=== PATIENT | female | born 1950 | race Caucasian/White ===

== ENCOUNTER → 2017-06-26 | Outpatient (CLI) | payer MEDICARE ==
[~2017-06-26] MED LIST: ACET325 PO; ASPI325 PO; ASPI81EC PO; Bactrim Ds Tab1 EACH PO; CITA20 PO; DIPH50 PO; DOCU100 PO; Ferrous Sulfat325 M2 PO; GABA100 PO; GABA300 PO; HYDACE10B PO; HYDR1TAB94 PO; LEVFLO500 PO; LEVSOD50 PO; LISI20 PO; LOVA40 PO; Loratadine10 MG PO; METO50ER PO; Methimazole5 MG PO; PRED10; PROBIOTIC1 EACH PO; Pantoprazole So40 MG PO; SERT25 PO; TRAZ50 PO
== END | disposition home or self-care (01) ==
LOC: LAB EV 17:08
DX: N39.0 Urinary tract infection, site not specified (principal)
CPT/HCPCS: 87077; 87086; 87147; 87186

== ENCOUNTER 2017-07-22 13:08 | Inpatient (IN) | payer MEDICARE ==
[~2017-07-22] VITALS: Ht 162.6 cm; Wt 97.5 kg
[~2017-07-22 13:08] MED LIST changes: -ACET325 PO; -ASPI325 PO; -Bactrim Ds Tab1 EACH PO; -DIPH50 PO; -DOCU100 PO; -Ferrous Sulfat325 M2 PO; -GABA300 PO; -HYDR1TAB94 PO; -LEVSOD50 PO; -PRED10; -PROBIOTIC1 EACH PO; -Pantoprazole So40 MG PO
[2017-08-27 04:26] LABS: BASOPHILS ABSOLUTE AUTO 0.01 K/mm3 (0.00-0.23); BASOPHILS PERCENT AUTO 0 % (0-2); EOSINOPHILS ABSOLUTE AUTO 0.04 K/mm3 (0.00-0.68); EOSINOPHILS PERCENT AUTO 1 % (0-6); Hematocrit 31.2 % (33.0-51.0); Hemoglobin 9.2 g/dL (11.5-16.0); IMMATURE GRAN ABSOLUTE AUTO 0.01 K/mm3 (0.00-0.10); IMMATURE GRAN PERCENT AUTO 0 % (0-1); LYMPHOCYTES ABSOLUTE AUTO 0.91 K/mm3 (0.84-5.20); LYMPHOCYTES PERCENT AUTO 16 % (21-46); MONOCYTES PERCENT AUTO 7 % (4-13); Mean Corpuscular HGB 26.1 pg (26.0-34.0); Mean Corpuscular HGB Conc 29.5 g/dL (31.5-36.5); Mean Corpuscular Volume 89 fL (80-100); NEUTROPHILS ABSOLUTE AUTO 4.19 K/mm3 (1.96-9.15); NEUTROPHILS PERCENT AUTO 75 % (41-73); RDW Coefficient Variation 20.5 % (11.7-14.2); RDW Standard Deviation 65.8 fL (35.1-46.3); Red Blood Cell Count 3.52 M/mm3 (3.80-5.20); White Blood Cell Count 5.56 K/mm3 (4.00-11.30)
[2017-08-27 04:31] LABS: Mean Platelet Volume 10.1 fL (9.1-12.4); Platelet Count 105 K/mm3 (150-400)
[2017-08-27 04:47] LABS: Anion Gap 6 mmol/L (6-16); Blood Urea Nitrogen 10 mg/dL (8-24); Bun/Creatinine Ratio 18.9 (12.0-20.0); CO2, Blood 28 mmol/L (21-32); Chloride, Blood 109 mmol/L (98-108); Creatinine, Blood 0.53 mg/dL (0.40-1.00); Glomerular Filtration Rate >60 (60-); Glucose, Blood 107 mg/dL (70-99); Potassium, Blood 3.8 mmol/L (3.5-5.5); Sodium, Blood 143 mmol/L (136-145)
[2017-08-27] MEDS ORDERED: HYDR1TAB94 PO (15:05)
[2017-08-27] MEDS ORDERED: DOCU100 PO (15:06)
[2017-08-27] MEDS ORDERED: IRON256 MG PO (15:08)
[2017-08-27] MEDS ORDERED: ASPI325 PO (15:15)
== END 2017-08-27 15:25 | disposition home or self-care (01) | DRG 483 ==
LOC: SURS 08-26 06:04 → PRE IP 08-26 07:30 → SURS 08-26 16:38
PROVIDERS: Orthopaedic Surgery
PROC: 0RRK0JZ Replacement of Left Shoulder Joint with Synthetic Substitute, Open Approach (ICD-10-PCS; principal; 2017-08-26 07:30)
DX: M19.012 Primary osteoarthritis, left shoulder (principal); M75.112 Incomplete rotator cuff tear or rupture of left shoulder, not specified as traumatic; K21.9 Gastro-esophageal reflux disease without esophagitis; F32.9 Major depressive disorder, single episode, unspecified; E78.5 Hyperlipidemia, unspecified; M06.9 Rheumatoid arthritis, unspecified; I10 Essential (primary) hypertension; E05.90 Thyrotoxicosis, unspecified without thyrotoxic crisis or storm; Z88.5 Allergy status to narcotic agent; Z79.899 Other long term (current) drug therapy; E04.9 Nontoxic goiter, unspecified
CPT/HCPCS: 36415; 73030; 80048; 85025; 86850; 86900; 86901; 88300; 97110; 97162; 97166; 97530; C1776; G8978; G8979; G8980; G8987; G8988; J0171; J0690; J0735; J1100; J1885; J2250; J2370; J2405; J2765; J2795; J3010; J7120; Q0163

== ENCOUNTER → 2018-01-09 | Outpatient (CLI) | payer MEDICARE ==
[~2018-01-09] MED LIST changes: +ASPI325 PO; +DOCU100 PO; +Ferrous Sulfat325 M2 PO; +GABA300 PO; +HYDR1TAB94 PO; +LEVSOD50 PO; +Pantoprazole So40 MG PO
[2018-01-09 09:35] LABS: BASOPHILS ABSOLUTE AUTO 0.03 K/mm3 (0.00-0.23); BASOPHILS PERCENT AUTO 0 % (0-2); EOSINOPHILS ABSOLUTE AUTO 0.02 K/mm3 (0.00-0.68); EOSINOPHILS PERCENT AUTO 0 % (0-6); Hematocrit 37.1 % (33.0-51.0); IMMATURE GRAN ABSOLUTE AUTO 0.07 K/mm3 (0.00-0.10); IMMATURE GRAN PERCENT AUTO 1 % (0-1); LYMPHOCYTES ABSOLUTE AUTO 1.21 K/mm3 (0.84-5.20); LYMPHOCYTES PERCENT AUTO 10 % (21-46); MONOCYTES ABSOLUTE AUTO 1.11 K/mm3 (0.16-1.47); MONOCYTES PERCENT AUTO 9 % (4-13); Mean Corpuscular HGB 32.8 pg (26.0-34.0); Mean Corpuscular Volume 94 fL (80-100); Mean Platelet Volume 9.6 fL (9.1-12.4); NEUTROPHILS ABSOLUTE AUTO 9.41 K/mm3 (1.96-9.15); NEUTROPHILS PERCENT AUTO 79 % (41-73); Platelet Count 208 K/mm3 (150-400); RDW Coefficient Variation 12.7 % (11.7-14.2); RDW Standard Deviation 43.5 fL (35.1-46.3); Red Blood Cell Count 3.96 M/mm3 (3.80-5.20); White Blood Cell Count 11.85 K/mm3 (4.00-11.30)
[2018-01-09 09:52] LABS: Alanine Aminotransfer (ALT/SGP 32 U/L (12-78); Albumin, Blood 3.7 g/dL (3.4-5.0); Albumin/Globulin Ratio 0.9 (0.8-1.8); Alk Phos 108 U/L (40-126); Anion Gap 13 mmol/L (6-16); Aspartate Aminotrans (AST/SGOT 22 U/L (12-37); Blood Urea Nitrogen 14 mg/dL (8-24); CO2, Blood 24 mmol/L (21-32); Chloride, Blood 103 mmol/L (98-108); Globulin, Blood 4.1 g/dL (2.2-4.0); Glomerular Filtration Rate >60 (60-); Glucose, Blood 118 mg/dL (70-99); Potassium, Blood 3.8 mmol/L (3.5-5.5); Sodium, Blood 140 mmol/L (136-145); Total Protein, Blood 7.8 g/dL (6.4-8.2)
== END | disposition home or self-care (01) ==
LOC: LAB EV 09:08 → LAB SHORT 09:08
PROVIDERS: General Practice
DX: N12 Tubulo-interstitial nephritis, not specified as acute or chronic (principal)
CPT/HCPCS: 80053; 85025; 87077; 87086; 87186

== ENCOUNTER 2018-01-11 10:15 | Inpatient (IN) | payer MEDICARE ==
[~2018-01-11] VITALS: Ht 165.1 cm; Wt 106.5 kg
[~2018-01-11 10:15] MED LIST changes: -GABA300 PO; -Pantoprazole So40 MG PO
[2018-01-11 11:03] LABS: BASOPHILS ABSOLUTE AUTO 0.02 K/mm3 (0.00-0.23); BASOPHILS PERCENT AUTO 0 % (0-2); EOSINOPHILS ABSOLUTE AUTO 0.08 K/mm3 (0.00-0.68); EOSINOPHILS PERCENT AUTO 1 % (0-6); Hematocrit 32.7 % (33.0-51.0); Hemoglobin 10.9 g/dL (11.5-16.0); IMMATURE GRAN ABSOLUTE AUTO 0.02 K/mm3 (0.00-0.10); IMMATURE GRAN PERCENT AUTO 0 % (0-1); LYMPHOCYTES ABSOLUTE AUTO 0.85 K/mm3 (0.84-5.20); LYMPHOCYTES PERCENT AUTO 13 % (21-46); MONOCYTES ABSOLUTE AUTO 0.58 K/mm3 (0.16-1.47); MONOCYTES PERCENT AUTO 9 % (4-13); Mean Corpuscular HGB 31.3 pg (26.0-34.0); Mean Corpuscular HGB Conc 33.3 g/dL (31.5-36.5); Mean Corpuscular Volume 94 fL (80-100); Mean Platelet Volume 9.4 fL (9.1-12.4); NEUTROPHILS ABSOLUTE AUTO 4.96 K/mm3 (1.96-9.15); NEUTROPHILS PERCENT AUTO 76 % (41-73); Platelet Count 178 K/mm3 (150-400); RDW Coefficient Variation 12.3 % (11.7-14.2); RDW Standard Deviation 42.2 fL (35.1-46.3); Red Blood Cell Count 3.48 M/mm3 (3.80-5.20); White Blood Cell Count 6.51 K/mm3 (4.00-11.30)
[2018-01-11] MEDS ORDERED: GABA300 PO (11:04)
[2018-01-11] MEDS ORDERED: Methimazole5 MG PO (11:07)
[2018-01-11] MEDS ORDERED: Pantoprazole So40 MG PO (11:07)
[2018-01-11 11:17] LABS: Alanine Aminotransfer (ALT/SGP 61 U/L (12-78); Albumin/Globulin Ratio 0.8 (0.8-1.8); Alk Phos 104 U/L (50-136); Anion Gap 7 mmol/L (6-16); Aspartate Aminotrans (AST/SGOT 72 U/L (12-37); Bilirubin, Total 0.7 mg/dL (0.1-1.0); Blood Urea Nitrogen 12 mg/dL (8-24); Bun/Creatinine Ratio 21.2 (12.0-20.0); CO2, Blood 27 mmol/L (21-32); Calcium, Blood 8.1 mg/dL (8.5-10.1); Chloride, Blood 106 mmol/L (98-108); Creatinine, Blood 0.57 mg/dL (0.40-1.00); Globulin, Blood 3.8 g/dL (2.2-4.0); Glomerular Filtration Rate >60 (60-); Glucose, Blood 100 mg/dL (70-99); Potassium, Blood 3.4 mmol/L (3.5-5.5); Sodium, Blood 140 mmol/L (136-145); Total Protein, Blood 6.8 g/dL (6.4-8.2)
[2018-01-11 11:36] LABS: Source, Urine Clean Catch
[2018-01-11 11:43] LABS: Bilirubin, Urine Neg (Neg); Blood, Urine 4+ (Neg); Glucose Qualitative, Urine Neg (Neg); Ketones, Urine Neg (Neg); Leukocyte Esterase, Urine 2+ (Neg); Nitrite, Urine Neg (Neg); Protein, Urine 2+ (Neg); Urobilinogen, Urine 2+ (Normal)
[2018-01-11 11:46] LABS: Appearance, Urine Hazy (Clear); Color, Urine Yellow (P-Yellow)
[2018-01-11 11:53] LABS: Bacteria Rare /hpf; Mucus Mod (0-Heavy); Squamous Epithelial Cells Few /hpf (Few)
[2018-01-12 04:45] LABS: BASOPHILS PERCENT AUTO 0 % (0-2); EOSINOPHILS PERCENT AUTO 0 % (0-6); Hematocrit 35.1 % (33.0-51.0); Hemoglobin 11.8 g/dL (11.5-16.0); IMMATURE GRAN ABSOLUTE AUTO 0.02 K/mm3 (0.00-0.10); IMMATURE GRAN PERCENT AUTO 0 % (0-1); LYMPHOCYTES ABSOLUTE AUTO 0.49 K/mm3 (0.84-5.20); LYMPHOCYTES PERCENT AUTO 10 % (21-46); MONOCYTES ABSOLUTE AUTO 0.09 K/mm3 (0.16-1.47); MONOCYTES PERCENT AUTO 2 % (4-13); Mean Corpuscular HGB Conc 33.6 g/dL (31.5-36.5); Mean Corpuscular Volume 95 fL (80-100); Mean Platelet Volume 9.5 fL (9.1-12.4); NEUTROPHILS PERCENT AUTO 88 % (41-73); Platelet Count 203 K/mm3 (150-400); RDW Coefficient Variation 12.1 % (11.7-14.2); RDW Standard Deviation 41.7 fL (35.1-46.3); Red Blood Cell Count 3.69 M/mm3 (3.80-5.20)
[2018-01-12 05:01] LABS: Anion Gap 8 mmol/L (6-16); Blood Urea Nitrogen 11 mg/dL (8-24); Bun/Creatinine Ratio 24.6 (12.0-20.0); CO2, Blood 23 mmol/L (21-32); Calcium, Blood 8.7 mg/dL (8.5-10.1); Chloride, Blood 109 mmol/L (98-108); Creatinine, Blood 0.45 mg/dL (0.40-1.00); Glomerular Filtration Rate >60 (60-); Glucose, Blood 143 mg/dL (70-99); Sodium, Blood 140 mmol/L (136-145)
[2018-01-13] MEDS ORDERED: DIPH50 PO (11:05)
[2018-01-13] MEDS ORDERED: ACET325 PO (11:05)
[2018-01-13] MEDS ORDERED: PROBIOTIC1 EACH PO (11:06)
[2018-01-13] MEDS ORDERED: PRED10 (11:07)
[2018-01-13] MEDS ORDERED: Bactrim Ds Tab1 EACH PO (11:07)
== END 2018-01-13 12:01 | disposition home or self-care (01) | DRG 690 ==
LOC: ER 10:15 → MEDS 10:16 → ENPENDDIS 01-13 09:30 → MEDS 01-13 12:01
PROVIDERS: Emergency Medicine; Internal Medicine
DX: N12 Tubulo-interstitial nephritis, not specified as acute or chronic (principal); E87.6 Hypokalemia; I10 Essential (primary) hypertension; E03.9 Hypothyroidism, unspecified; T36.8X5A Adverse effect of other systemic antibiotics, initial encounter; B96.89 Other specified bacterial agents as the cause of diseases classified elsewhere; E66.9 Obesity, unspecified; Z68.36 Body mass index [BMI] 36.0-36.9, adult; Z87.440 Personal history of urinary (tract) infections; Z87.891 Personal history of nicotine dependence; Z79.899 Other long term (current) drug therapy; Z88.5 Allergy status to narcotic agent
CPT/HCPCS: 36415; 74176; 80048; 80053; 81001; 83605; 85025; 87040; 87086; 96361; 96365; 96372; 96375; 96376; 99285-25; G0378; J0696; J1200; J1650; J1885; J1956; J2405; J2930; J7030

== ENCOUNTER → 2018-09-16 | Outpatient (CLI) | payer MEDICARE ==
[~2018-09-16] MED LIST changes: +ACET325 PO; +Bactrim Ds Tab1 EACH PO; +DIPH50 PO; +GABA300 PO; +PRED10; +PROBIOTIC1 EACH PO; +Pantoprazole So40 MG PO
[2018-09-16 17:43] LABS: BASOPHILS ABSOLUTE AUTO 0.02 K/mm3 (0.00-0.23); BASOPHILS PERCENT AUTO 0 % (0-2); EOSINOPHILS ABSOLUTE AUTO 0.03 K/mm3 (0.00-0.68); EOSINOPHILS PERCENT AUTO 1 % (0-6); Hematocrit 40.2 % (33.0-51.0); Hemoglobin 12.9 g/dL (11.5-16.0); IMMATURE GRAN ABSOLUTE AUTO 0.02 K/mm3 (0.00-0.10); IMMATURE GRAN PERCENT AUTO 0 % (0-1); LYMPHOCYTES ABSOLUTE AUTO 0.91 K/mm3 (0.84-5.20); LYMPHOCYTES PERCENT AUTO 14 % (21-46); MONOCYTES ABSOLUTE AUTO 0.67 K/mm3 (0.16-1.47); MONOCYTES PERCENT AUTO 10 % (4-13); Mean Corpuscular HGB 31.2 pg (26.0-34.0); Mean Corpuscular HGB Conc 32.1 g/dL (31.5-36.5); Mean Corpuscular Volume 97 fL (80-100); Mean Platelet Volume 9.4 fL (9.1-12.4); NEUTROPHILS ABSOLUTE AUTO 4.84 K/mm3 (1.96-9.15); NEUTROPHILS PERCENT AUTO 75 % (41-73); Platelet Count 149 K/mm3 (150-400); RDW Coefficient Variation 12.8 % (11.7-14.2); RDW Standard Deviation 45.2 fL (35.1-46.3); Red Blood Cell Count 4.13 M/mm3 (3.80-5.20); White Blood Cell Count 6.49 K/mm3 (4.00-11.30)
[2018-09-16 18:32] LABS: Alanine Aminotransfer (ALT/SGP 18 U/L (12-78); Albumin, Blood 3.9 g/dL (3.4-5.0); Albumin/Globulin Ratio 1.1 (0.8-1.8); Alk Phos 152 U/L (40-126); Anion Gap 8 mmol/L (6-16); Aspartate Aminotrans (AST/SGOT 16 U/L (12-37); Bilirubin, Total 0.4 mg/dL (0.1-1.0); Blood Urea Nitrogen 12 mg/dL (8-24); Bun/Creatinine Ratio 17.9 (12.0-20.0); CO2, Blood 28 mmol/L (21-32); Calcium, Blood 7.9 mg/dL (8.5-10.1); Chloride, Blood 103 mmol/L (98-108); Creatinine, Blood 0.67 mg/dL (0.40-1.00); Globulin, Blood 3.5 g/dL (2.2-4.0); Glomerular Filtration Rate >60 (60-); Glucose, Blood 94 mg/dL (70-99); Potassium, Blood 3.8 mmol/L (3.5-5.5); Sodium, Blood 139 mmol/L (136-145); Total Protein, Blood 7.4 g/dL (6.4-8.2)
== END | disposition home or self-care (01) ==
LOC: LAB EV 17:11 → LAB SHORT 17:11
PROVIDERS: Physician Assistant
DX: N10 Acute pyelonephritis (principal)
CPT/HCPCS: 80053; 85025; 87077; 87086; 87186

== ENCOUNTER → 2018-12-14 | Outpatient (CLI) | payer MEDICARE ==
[2018-12-14 13:40] LABS: Source, Urine Clean Catch
[2018-12-14 15:32] LABS: Bilirubin, Urine Neg (Neg); Blood, Urine 4+ (Neg); Glucose Qualitative, Urine Neg (Neg); Ketones, Urine Neg (Neg); Leukocyte Esterase, Urine 3+ (Neg); Nitrite, Urine Neg (Neg); Protein, Urine 1+ (Neg); Urobilinogen, Urine NORM (Normal)
[2018-12-14 15:52] LABS: Appearance, Urine Clear (Clear); Calcium Oxalate Crystals Many /hpf; Color, Urine Yellow (P-Yellow)
[2018-12-14 15:53] LABS: Bacteria Few /hpf; Red Blood Cells, Urine 0-2 /hpf (0-2); Squamous Epithelial Cells Few /hpf (Few)
== END | disposition home or self-care (01) ==
LOC: LAB 13:39 → LAB SHORT 13:39
PROVIDERS: Family Medicine
DX: N15.9 Renal tubulo-interstitial disease, unspecified (principal)
CPT/HCPCS: 81001; 87086

== ENCOUNTER → 2019-03-08 | Outpatient (CLI) | payer MEDICARE | END | disposition home or self-care (01) | LOC: LAB EV 09:58 → LAB SHORT 09:58 | DX: N12 Tubulo-interstitial nephritis, not specified as acute or chronic (principal) | CPT/HCPCS: 87086 ==

== ENCOUNTER → 2019-06-12 | Outpatient (CLI) | payer MEDICARE | LOC: LAB SHORT 10:04 → LAB EV 10:04 | DX: N39.0 Urinary tract infection, site not specified (principal) | CPT/HCPCS: 87077; 87086; 87186 ==

== ENCOUNTER → 2020-01-28 | Outpatient (CLI) | payer MEDICARE ==
[~2020-01-28] MED LIST changes: +ACET500 PO; +ASPI81CH PO; +Norco 5-325 Ta1 EACH PO; +OXYC5 PO
== END | disposition home or self-care (01) ==
LOC: LAB EV 11:39 → LAB SHORT 11:39
DX: N39.0 Urinary tract infection, site not specified (principal)
CPT/HCPCS: 87086

== ENCOUNTER 2020-06-19 06:06 | Day surgery (SDC) | payer MEDICARE ==
[~2020-06-19] VITALS: Ht 165.1 cm; Wt 99.4 kg
[~2020-06-19 06:06] MED LIST changes: +METHACARBAMOL PO; +MULVITA PO; +VITAMIN D310 MC4 PO
--- NOTE | 2020-06-19 07:27 | NUR ---
Ambulatory in Day Surgery. Surgical site prepped with 2% Chlorhexidine cloth wipe. Brenda Paws warming gown applied. History, Chart, Medications and Allergies reviewed before start of procedure.Lungs clear T/O to Auscultation. Patient confirms NPO status and agrees with scheduled surgery. Pre-Op teaching done. Pt verbalizes understanding. Patient States Post-Procedure ride home has been arranged. Patient reports completing Chlorhexadine shower X2 prior to admission to hospital. PATIENT HAS AGREED TO ALLOW A STUDENT TO FOLLOW HER PROCEDURE.
--- NOTE | 2020-06-19 10:52 | NUR ---
PT ARRIVED TO UNIT AT APROX 1040 FROM PACU. PT WITH FULL SENSATION IN LLE. C/O 8/ PAIN, MEDICATED WITH 1 ROXICODONE PER EMAR SINCE PT IS TOLERATING PO WITH NO N/V AT THIS TIME. DRESSING TO LLE C/D/I.
--- NOTE | 2020-06-19 18:30 | NUR ---
RECENTLY DISCUSSED PT'S STATUS INCLUDING PAIN MGMT/ORDERS WITH DR LADONNA CLEVELAND.
--- NOTE | 2020-06-19 19:15 | NUR ---
SHIFT SUMMARY PT EATING AND DRINKING, VOIDING. PT HAD DIFFICULTY WITH PAIN MGMT TODAY, REPORTS DOING BETTER THIS EVENING. DR CLEVELAND WAS CONTACTED THIS EVENING, WAS REPORTED TO BE IN PROCEDURE EARLIER TODAY WHEN PT MEDICATED WITH IV DILAUDID. PT WORKED WITH THERAPY EARLIER TODAY AND HAS BEEN UP TO CHAIR WITH POLAR PAC IN PLACE AND LEG ELEVATED. TEDS BEEN IN PLACE. PAS IN PLACE OFF AND ON PER PT REQ.
--- NOTE | 2020-06-20 04:15 | NUR ---
SHIFT SUMMARY: POD 1 LEFT TOTAL KNEE REPLACEMENT PATIENT IS ALERT AND ORIENTED X4 WHILE AWAKE. SHE HAS BEEN ASLEEP MAJORITY OF THE SHIFT BUT IS EASILY AROUSABLE. VS ARE WNL AND IS ON RA. PAIN IS MANAGED WITH 2 OXY PO, TYLENOL PO, AND TORADOL. PATIENT IS EDVIN PO INTAKE AND IS VOIDING IN THE BATHROOM. PATIENT IS A SBA WITH FWW AND GAIT BELT. SHE HAS HER SCD'S IN PLACE WELL POLAR PAC WITH LEG ELEVATED. PATIENT CALLS APPROPRIATELY. CALL LIGHT WITHIN REACH. THE PLAN IS TO CONTINUE TO WORK WITH PT/OT WELL CONTINUE WITH PAIN MANAGEMENT.
[2020-06-20 05:16] LABS: BASOPHILS ABSOLUTE AUTO 0.01 K/mm3 (0.00-0.23); BASOPHILS PERCENT AUTO 0 % (0-2); EOSINOPHILS ABSOLUTE AUTO 0.01 K/mm3 (0.00-0.68); EOSINOPHILS PERCENT AUTO 0 % (0-6); Hematocrit 36.4 % (33.0-51.0); Hemoglobin 11.5 g/dL (11.5-16.0); IMMATURE GRAN ABSOLUTE AUTO 0.05 K/mm3 (0.00-0.10); IMMATURE GRAN PERCENT AUTO 1 % (0-1); LYMPHOCYTES ABSOLUTE AUTO 1.12 K/mm3 (0.84-5.20); LYMPHOCYTES PERCENT AUTO 12 % (21-46); MONOCYTES ABSOLUTE AUTO 0.66 K/mm3 (0.16-1.47); MONOCYTES PERCENT AUTO 7 % (4-13); Mean Corpuscular HGB 31.3 pg (26.0-34.0); Mean Corpuscular HGB Conc 31.6 g/dL (31.5-36.5); Mean Corpuscular Volume 99 fL (80-100); Mean Platelet Volume 9.4 fL (9.1-12.4); NEUTROPHILS ABSOLUTE AUTO 7.79 K/mm3 (1.96-9.15); NEUTROPHILS PERCENT AUTO 81 % (41-73); Platelet Count 164 K/mm3 (150-400); RDW Coefficient Variation 12.3 % (11.7-14.2); RDW Standard Deviation 45.1 fL (35.1-46.3); Red Blood Cell Count 3.67 M/mm3 (3.80-5.20); White Blood Cell Count 9.64 K/mm3 (4.00-11.30)
[2020-06-20 05:43] LABS: Anion Gap 5 mmol/L (6-16); Blood Urea Nitrogen 16 mg/dL (8-24); Bun/Creatinine Ratio 22.1 (12.0-20.0); CO2, Blood 28 mmol/L (21-32); Calcium, Blood 8.6 mg/dL (8.5-10.1); Chloride, Blood 107 mmol/L (98-108); Creatinine, Blood 0.73 mg/dL (0.40-1.00); Glomerular Filtration Rate >60 (60-); Glucose, Blood 109 mg/dL (70-99); Potassium, Blood 4.4 mmol/L (3.5-5.5); Sodium, Blood 140 mmol/L (136-145)
--- NOTE | 2020-06-20 08:18 | NUR ---
RED HERE TO SEE PT.
[2020-06-20] MEDS ORDERED: ASPIR 8181 M1 PO (08:41)
[2020-06-20] MEDS ORDERED: ROXICODONE5 MG PO (08:42)
--- NOTE | 2020-06-20 14:31 | NUR ---
PT HAVING DRAINAGE TO DRESSING APPROX 1/3 OF THE DRESSING. DRESSING WAS CHANGED EARLIER TODAY RELATED TO SMALL AMT OF DRAINAGE, LITTLE LESS THAN A THIRD OF THE DRESSING. DISCUSSED WITH SCREWDOWN OPERATOR WHO NOTIFIED DR CLEVELAND. 4X4 GAUZE DRESSING AND DEDRA WRAP PLACD. POLAR PAC IN PLACE. PT TO STAY TONIGHT TO MONITOR DRAINAGE. PT INCISION WAS HELD FOR 5 MINUTES WITH CONSTANT PRESSURE TO STOP THE BLEEDING/DRAINAGE AT THIS TIME. LEG ELEVATED IN RECLINER CHAIR.
--- NOTE | 2020-06-20 17:56 | NUR ---
SHIFT SUMMARY PT EATING AND DRINKING, VOIDING. PT HAD DRAINAGE TO DRESSING TODAY. PT HAD 4X4 GAUZE AND DEDRA WRAP PLACED TODAY. PT HAS HAD POLAR PAC IN PLACE. PT HAS TEDS IN PLACE. PT WEARING PAS AT TIMES. PT REPORTS PAIN DOING MUCH BETTER THIS EVENING. PT HAVING SMALL AMT OF DRAINAGE. PT USING CALL LIGHT APPR.
--- NOTE | 2020-06-21 03:46 | NUR ---
SHIFT SUMMARY: CHRISTEL IS A&OX4. VSS, NO ACUTE EVENTS OVERNIGHT. SHE REPORTS THAT THE PAIN RETURNS APPROX 3 HOURS AFTER RECEIVING THE OXYCODONE AND DID REQUIRE A DOSE OF DILAUDID THIS SHIFT. SHE IS TOLERATING PO INTAKE WELL AND DENIES ANY DIFFICULTY WITH URINATION. DRESSING TO LEFT KNEE WITH A SMALL AMOUNT OF DRAINAGE. IV TO LEFT FOREARM PATENT. SHE IS A ONE PERSON ASSIST FOR AMBULATION WITH THE FWW AND GAIT BELT. ELVI OCONNOR, SCDs, AND POLAR PACK IN PLACE. SHE IS LYING IN BED WITH HER CALL LIGHT IN REACH. WILL REPORT TO DAY SHIFT RN.
--- NOTE | 2020-06-21 08:04 | NUR ---
OOB TO CHAIR, AMBULATED TO THE BATHROOM THIS AM WITH WALKER, TOLERATED WELL, C/O 7/10 PAIN, MEDICATED PER EMAR, POLAR PACK ICE ON L KNEE INTACT, DSG C/D/I, CONT. TO MONITOR FOR ANY CHANGES.
--- NOTE | 2020-06-21 11:12 | NUR ---
CLEARED BY PT TO GO HOME, DC INSTRUCTIONS GIVEN, VERBALIZED UNDERSTANDING, DRESSING ON L KNEE CHANGED, SOME ECCHYMOSIS NOTED AROUND INCISION BUT CLEAN AND DRY, NO NEW DRAINAGE NOTED ON OLD DRESSING, AQUACEL DRESSING APPLIED.
== END 2020-06-21 12:14 | disposition home or self-care (01) ==
LOC: ORSCMMR 06:06 → ORD 07:30 → ORSCMMR 07:30 → SURS 10:39 → ORD 13:30 → SURS 06-21 12:14 → ORSCMMR 06-21 12:14
PROVIDERS: Orthopaedic Surgery
PROC: 0SRD0JA Replacement of Left Knee Joint with Synthetic Substitute, Uncemented, Open Approach (ICD-10-PCS; principal; 2020-06-19 07:30)
PROC: 8E0Y0CZ Robotic Assisted Procedure of Lower Extremity, Open Approach (ICD-10-PCS; principal; 2020-06-19 07:30)
DX: M17.12 Unilateral primary osteoarthritis, left knee (principal); I10 Essential (primary) hypertension; K21.9 Gastro-esophageal reflux disease without esophagitis; E03.9 Hypothyroidism, unspecified; F41.8 Other specified anxiety disorders; E66.01 Morbid (severe) obesity due to excess calories; Z68.36 Body mass index [BMI] 36.0-36.9, adult; Z79.899 Other long term (current) drug therapy
CPT/HCPCS: 27447; S2900; 36415; 73560-LT; 80048; 83735; 85025; 88300; 97110; 97110-CQ; 97116; 97116-CQ; 97162; 97530; 97530-CQ; A9270; C1776; J0171; J0690; J0735; J1170; J1885; J2250; J2370; J2704; J2795; J3010; J7120

== ENCOUNTER → 2020-07-01 | Outpatient (CLI) | payer MEDICARE ==
[~2020-07-01] MED LIST changes: +ASPIR 8181 M1 PO; +METPRE4DP PO; +Macrobid 100 M100 MG PO; +ROXICODONE5 MG PO
== END | disposition home or self-care (01) ==
LOC: PLD 14:41 → LAB SHORT 14:41
DX: N39.0 Urinary tract infection, site not specified (principal)
CPT/HCPCS: 87077; 87086; 87186

== ENCOUNTER 2020-10-14 10:41 | Emergency (ER) | payer MEDICARE ==
[~2020-10-14] VITALS: Ht 162.6 cm; Wt 95.2 kg
[~2020-10-14 10:41] MED LIST changes: -METPRE4DP PO; -Macrobid 100 M100 MG PO
[2020-10-14 11:13] LABS: Source, Urine Clean Catch
[2020-10-14 11:22] LABS: Appearance, Urine Hazy (Clear); Bilirubin, Urine Neg (Neg); Blood, Urine 5+ (Neg); Color, Urine Yellow (P-Yellow); Glucose Qualitative, Urine Neg (Neg); Ketones, Urine Neg (Neg); Leukocyte Esterase, Urine 2+ (Neg); Nitrite, Urine Neg (Neg); Protein, Urine 1+ (Neg); Specific Gravity, Urine 1.015 (1.003-1.022); Urobilinogen, Urine NORM (Normal)
[2020-10-14 11:33] LABS: Red Blood Cells, Urine 50-100 /hpf (0-2); White Blood Cells, Urine 25-50 /hpf (0-5)
[2020-10-14 11:34] LABS: Bacteria Few /hpf; Squamous Epithelial Cells Rare /hpf (Few)
[2020-10-14 11:47] LABS: BASOPHILS ABSOLUTE AUTO 0.03 K/mm3 (0.00-0.23); BASOPHILS PERCENT AUTO 1 % (0-2); EOSINOPHILS ABSOLUTE AUTO 0.21 K/mm3 (0.00-0.68); EOSINOPHILS PERCENT AUTO 4 % (0-6); Hematocrit 34.8 % (33.0-51.0); Hemoglobin 11.3 g/dL (11.5-16.0); IMMATURE GRAN ABSOLUTE AUTO 0.04 K/mm3 (0.00-0.10); IMMATURE GRAN PERCENT AUTO 1 % (0-1); LYMPHOCYTES ABSOLUTE AUTO 0.61 K/mm3 (0.84-5.20); LYMPHOCYTES PERCENT AUTO 12 % (21-46); MONOCYTES PERCENT AUTO 8 % (4-13); Mean Corpuscular HGB 31.9 pg (26.0-34.0); Mean Corpuscular HGB Conc 32.5 g/dL (31.5-36.5); Mean Corpuscular Volume 98 fL (80-100); Mean Platelet Volume 9.1 fL (9.1-12.4); NEUTROPHILS ABSOLUTE AUTO 3.97 K/mm3 (1.96-9.15); NEUTROPHILS PERCENT AUTO 75 % (41-73); Platelet Count 178 K/mm3 (150-400); RDW Coefficient Variation 13.2 % (11.7-14.2); RDW Standard Deviation 47.2 fL (35.1-46.3); Red Blood Cell Count 3.54 M/mm3 (3.80-5.20); White Blood Cell Count 5.26 K/mm3 (4.00-11.30)
[2020-10-14 12:22] LABS: Alanine Aminotransfer (ALT/SGP 19 U/L (12-78); Albumin, Blood 3.5 g/dL (3.4-5.0); Albumin/Globulin Ratio 0.9 (0.8-1.8); Alk Phos 190 U/L (50-136); Anion Gap 5 mmol/L (6-16); Aspartate Aminotrans (AST/SGOT 17 U/L (12-37); Bilirubin, Total 0.5 mg/dL (0.1-1.0); Blood Urea Nitrogen 18 mg/dL (8-24); Bun/Creatinine Ratio 23.5 (12.0-20.0); CO2, Blood 22 mmol/L (21-32); Calcium, Blood 8.4 mg/dL (8.5-10.1); Chloride, Blood 110 mmol/L (98-108); Creatinine, Blood 0.77 mg/dL (0.40-1.00); Globulin, Blood 3.7 g/dL (2.2-4.0); Glomerular Filtration Rate >60 (60-); Glucose, Blood 98 mg/dL (70-99); Potassium, Blood 4.1 mmol/L (3.5-5.5); Sodium, Blood 137 mmol/L (136-145); Total Protein, Blood 7.2 g/dL (6.4-8.2)
[2020-10-14] MEDS ORDERED: Norco 5-325 Ta1 EACH PO (15:46)
== END 2020-10-14 15:50 | disposition home or self-care (01) ==
LOC: ER 10:41
PROVIDERS: Emergency Medicine
DX: S30.1XXA Contusion of abdominal wall, initial encounter (principal); I10 Essential (primary) hypertension; E03.9 Hypothyroidism, unspecified; N39.0 Urinary tract infection, site not specified; Z88.5 Allergy status to narcotic agent; Z88.1 Allergy status to other antibiotic agents; Z79.82 Long term (current) use of aspirin; Z79.899 Other long term (current) drug therapy; Z87.891 Personal history of nicotine dependence; X58.XXXA Exposure to other specified factors, initial encounter
CPT/HCPCS: 36415; 74177; 80053; 81001; 85025; 87086; 96374-59; 99284-25; J1170; P9612; Q9967

== ENCOUNTER 2020-10-19 14:56 | Emergency (ER) | payer MEDICARE ==
[~2020-10-19] VITALS: Ht 162.6 cm; Wt 97.5 kg
== END 2020-10-19 15:55 | disposition left against medical advice (07) ==
LOC: ER 14:56
DX: M54.9 Dorsalgia, unspecified (principal); R33.9 Retention of urine, unspecified; Z53.21 Procedure and treatment not carried out due to patient leaving prior to being seen by health care provider; Z79.899 Other long term (current) drug therapy; R58 Hemorrhage, not elsewhere classified; R82.79 Other abnormal findings on microbiological examination of urine; M25.551 Pain in right hip; M51.36 Other intervertebral disc degeneration, lumbar region; M47.816 Spondylosis without myelopathy or radiculopathy, lumbar region
CPT/HCPCS: 51798; 72100; 73502; 80053; 85025; 85610; 85730; 87077; 87086; 87186; 99282-25

== ENCOUNTER 2020-10-26 12:35 | Emergency (ER) | payer MEDICARE ==
[~2020-10-26] VITALS: Ht 162.6 cm; Wt 95.2 kg
[2020-10-26 14:49] LABS: Source, Urine Clean Catch
[2020-10-26 14:58] LABS: Appearance, Urine Clear (Clear); Bilirubin, Urine Neg (Neg); Blood, Urine 4+ (Neg); Color, Urine Yellow (P-Yellow); Glucose Qualitative, Urine Neg (Neg); Ketones, Urine 2+ (Neg); Leukocyte Esterase, Urine 2+ (Neg); Nitrite, Urine Neg (Neg); Protein, Urine Neg (Neg); Urobilinogen, Urine NORM (Normal); pH, Urine 6.5 (5.0-8.0)
[2020-10-26 15:20] LABS: Bacteria Mod /hpf; Squamous Epithelial Cells Few /hpf (Few)
[2020-10-26] MEDS ORDERED: Macrobid 100 M100 MG PO (16:14)
[2020-10-26] MEDS ORDERED: METPRE4DP PO (16:14)
[2020-10-26] MEDS ORDERED: HYDR1TAB94 PO (16:14)
== END 2020-10-26 17:00 | disposition home or self-care (01) ==
LOC: ER 12:35
PROVIDERS: Emergency Medicine
DX: N39.0 Urinary tract infection, site not specified (principal); I10 Essential (primary) hypertension; E03.9 Hypothyroidism, unspecified; Z88.5 Allergy status to narcotic agent; Z88.1 Allergy status to other antibiotic agents; Z79.899 Other long term (current) drug therapy; Z87.891 Personal history of nicotine dependence
CPT/HCPCS: 72100; 73502; 81001; 87086; 96372-59; 99283-25; A9270; J1100; J1170; P9612

== ENCOUNTER → 2020-12-11 | Outpatient (CLI) | payer MEDICARE ==
[~2020-12-11] MED LIST changes: +METPRE4DP PO; +Macrobid 100 M100 MG PO
== END | disposition home or self-care (01) ==
LOC: LAB SHORT 14:35 → PLD 14:35
DX: N39.0 Urinary tract infection, site not specified (principal)
CPT/HCPCS: 87077; 87086; 87186

== ENCOUNTER → 2021-06-08 | Outpatient (CLI) | payer MEDICARE ==
[2021-06-08 09:35] LABS: Source, Urine Clean Catch
[2021-06-08 14:51] LABS: Bilirubin, Urine Neg (Neg); Blood, Urine 4+ (Neg); Glucose Qualitative, Urine Neg (Neg); Ketones, Urine Neg (Neg); Leukocyte Esterase, Urine 1+ (Neg); Nitrite, Urine Neg (Neg); Protein, Urine Neg (Neg); Specific Gravity, Urine 1.015 (1.003-1.022); Urobilinogen, Urine NORM (Normal)
[2021-06-08 15:01] LABS: Appearance, Urine Hazy (Clear); Color, Urine Pale Yellow (P-Yellow)
[2021-06-08 15:03] LABS: Amorphous Light (0-Heavy); Bacteria Few /hpf; Hyaline Casts Rare /lpf (0-2); Mucus Light (0-Heavy); Squamous Epithelial Cells Few /hpf (Few)
[2021-06-08 15:04] LABS: Granular Casts Rare /lpf (0)
== END | disposition home or self-care (01) ==
LOC: LAB SHORT 09:32
PROVIDERS: Family Medicine
DX: N39.0 Urinary tract infection, site not specified (principal)
CPT/HCPCS: 81001; 87086

== ENCOUNTER → 2021-10-09 | Outpatient (CLI) | payer MEDICARE | END | disposition home or self-care (01) | LOC: LAB SHORT 13:50 → LAB 13:50 | DX: N39.0 Urinary tract infection, site not specified (principal) | CPT/HCPCS: 87086 ==

== ENCOUNTER 2022-12-10 12:50 | Emergency (ER) | payer MEDICARE ==
[~2022-12-10] VITALS: Ht 162.6 cm; Wt 95.2 kg
[2022-12-10 14:42] LABS: Source, Urine Clean Catch
[2022-12-10 14:46] LABS: Appearance, Urine Hazy (Clear); Bilirubin, Urine Neg (Neg); Blood, Urine 4+ (Neg); Color, Urine Yellow (P-Yellow); Glucose Qualitative, Urine Neg (Neg); Ketones, Urine Neg (Neg); Leukocyte Esterase, Urine 3+ (Neg); Nitrite, Urine Pos (Neg); Protein, Urine 2+ (Neg); Specific Gravity, Urine 1.015 (1.003-1.022); Urobilinogen, Urine NORM (Normal)
[2022-12-10 15:06] LABS: White Blood Cells, Urine TNTC /hpf (0-5)
[2022-12-10 15:07] LABS: Bacteria Many /hpf; Squamous Epithelial Cells Few /hpf (Few)
[2022-12-10 16:13] VITALS: BP 135/79
[2022-12-10] MEDS ORDERED: ONDA4ODT MM (16:39)
[2022-12-10] MEDS ORDERED: CEFP200 PO (16:39)
== END 2022-12-10 16:59 | disposition home or self-care (01) ==
LOC: ER 12:50
PROVIDERS: Emergency Medicine
DX: N12 Tubulo-interstitial nephritis, not specified as acute or chronic (principal); Z88.5 Allergy status to narcotic agent; Z88.1 Allergy status to other antibiotic agents; Z79.899 Other long term (current) drug therapy; Z79.82 Long term (current) use of aspirin; I10 Essential (primary) hypertension; E03.9 Hypothyroidism, unspecified; Z87.891 Personal history of nicotine dependence
CPT/HCPCS: 81001; 87077; 87086; 87186; A9270

== ENCOUNTER → 2023-01-03 | Outpatient (CLI) | payer MEDICARE ==
[~2023-01-03] MED LIST changes: +CEFP200 PO; +ONDA4ODT MM
== END ==
LOC: LAB SHORT 18:20 → LAB 18:20
DX: R30.0 Dysuria (principal)
CPT/HCPCS: 87077; 87086; 87186

== ENCOUNTER → 2023-02-12 | Outpatient (CLI) | payer MEDICARE | END | disposition home or self-care (01) | LOC: LAB 16:15 → LAB SHORT 16:15 | DX: R30.0 Dysuria (principal) | CPT/HCPCS: 87077; 87086; 87186 ==

== ENCOUNTER → 2023-03-03 | Outpatient (CLI) | payer MEDICARE ==
[~2023-03-03] MED LIST changes: +Aspir 8181 MG PO; +CEFU500T30 PO; +VISBIOME 112.51 EACH PO
== END ==
LOC: LAB SHORT 12:39 → LAB 12:39
DX: N39.0 Urinary tract infection, site not specified (principal)
CPT/HCPCS: 87077; 87086; 87186

== ENCOUNTER 2023-03-04 09:40 | Inpatient (IN) | payer MEDICARE ==
[~2023-03-04] VITALS: Ht 162.6 cm; Wt 103.5 kg
[~2023-03-04 09:40] MED LIST changes: -Aspir 8181 MG PO; -CEFU500T30 PO; -VISBIOME 112.51 EACH PO
[2023-03-04 10:57] LABS: BASOPHILS ABSOLUTE AUTO 0.02 K/mm3 (0.00-0.23); BASOPHILS PERCENT AUTO 0 % (0-2); EOSINOPHILS ABSOLUTE AUTO 0.09 K/mm3 (0.00-0.68); EOSINOPHILS PERCENT AUTO 1 % (0-6); Hematocrit 34.5 % (33.0-51.0); Hemoglobin 10.9 g/dL (11.5-16.0); IMMATURE GRAN ABSOLUTE AUTO 0.15 K/mm3 (0.00-0.10); IMMATURE GRAN PERCENT AUTO 2 % (0-1); LYMPHOCYTES ABSOLUTE AUTO 0.48 K/mm3 (0.84-5.20); LYMPHOCYTES PERCENT AUTO 6 % (21-46); MONOCYTES ABSOLUTE AUTO 0.39 K/mm3 (0.16-1.47); MONOCYTES PERCENT AUTO 5 % (4-13); Mean Corpuscular HGB 30.8 pg (26.0-34.0); Mean Corpuscular HGB Conc 31.6 g/dL (31.5-36.5); Mean Corpuscular Volume 98 fL (80-100); Mean Platelet Volume 10.4 fL (9.1-12.4); NEUTROPHILS ABSOLUTE AUTO 7.14 K/mm3 (1.96-9.15); NEUTROPHILS PERCENT AUTO 86 % (41-73); Platelet Count 109 K/mm3 (150-400); RDW Coefficient Variation 14.1 % (11.7-14.2); RDW Standard Deviation 50.4 fL (35.1-46.3); Red Blood Cell Count 3.54 M/mm3 (3.80-5.20); White Blood Cell Count 8.27 K/mm3 (4.00-11.30)
[2023-03-04 10:57] LABS: Source, Urine Clean Catch
[2023-03-04 11:06] LABS: Albumin/Globulin Ratio 0.8 (0.8-1.8); Bilirubin, Total 0.4 mg/dL (0.1-1.0); Bun/Creatinine Ratio 28.8 (12.0-20.0); Calcium, Blood 8.3 mg/dL (8.5-10.1); Creatinine, Blood 1.53 mg/dL (0.40-1.00)
[2023-03-04 11:20] LABS: Appearance, Urine Hazy (Clear); Bilirubin, Urine Neg (Neg); Blood, Urine 5+ (Neg); Color, Urine Yellow (P-Yellow); Glucose Qualitative, Urine Neg (Neg); Ketones, Urine Neg (Neg); Leukocyte Esterase, Urine 3+ (Neg); Nitrite, Urine Neg (Neg); Protein, Urine 3+ (Neg); Urobilinogen, Urine NORM (Normal)
[2023-03-04 11:30] LABS: Amorphous Light (0-Heavy); Bacteria Few /hpf; Red Blood Cells, Urine 50-100 /hpf (0-2); Squamous Epithelial Cells Few /hpf (Few); White Blood Cells, Urine 50-100 /hpf (0-5)
[2023-03-04 18:27] VITALS: BP 125/75
[2023-03-05 06:07] VITALS: BP 144/76
--- NOTE | 2023-03-05 06:09 | NUR ---
NOC SHIFT SUMMARY: PT. ADMITTIED WITH UTI. NORMAL SALINE X 2 LITERS TO BE GIVEN. LOST IV ACCESS THIS AM. CHARGE NURSE AWARE AND WAITING ON ULTRASOUND PLACEMENT. INDEPENDENT TO BSC. NORCO NEEDED FOR PAIN CONTROL.
[2023-03-05 06:27] LABS: Hematocrit 33.8 % (33.0-51.0); Hemoglobin 10.7 g/dL (11.5-16.0); Mean Corpuscular HGB 30.8 pg (26.0-34.0); Mean Corpuscular HGB Conc 31.7 g/dL (31.5-36.5); Mean Corpuscular Volume 97 fL (80-100); Mean Platelet Volume 10.2 fL (9.1-12.4); Platelet Count 104 K/mm3 (150-400); RDW Coefficient Variation 14.3 % (11.7-14.2); RDW Standard Deviation 50.7 fL (35.1-46.3); Red Blood Cell Count 3.47 M/mm3 (3.80-5.20); White Blood Cell Count 5.51 K/mm3 (4.00-11.30)
[2023-03-05 06:43] LABS: Bun/Creatinine Ratio 27.9 (12.0-20.0); Calcium, Blood 8.7 mg/dL (8.5-10.1); Creatinine, Blood 1.11 mg/dL (0.40-1.00); Potassium, Blood 3.8 mmol/L (3.5-5.5)
[2023-03-05 07:19] VITALS: BP 145/84
[2023-03-05 16:16] VITALS: BP 141/76
--- NOTE | 2023-03-05 18:01 | NUR ---
SHIFT SUMMARY PT A&OX4, AMB IND TO BEDSIDE COMMODE, TOLERATING PO, VOIDING, AND PAIN MANAGED PER EMAR. POWERGLIDE PLACED IN EDILMA THIS AM. PLAN FOR POSSIBLE DISCHARGE TOMORROW. CALL LIGHT WITHIN REACH AND PT ABLE TO MAKE NEEDS KNOWN.
[2023-03-05 19:29] VITALS: BP 134/99
[2023-03-06 04:01] VITALS: BP 146/65
--- NOTE | 2023-03-06 04:11 | NUR ---
SHIFT SUMMARY PATIENT A/Ox4, BRIGHT AFFECT. PAIN MANAGED PER EMAR FOR C/O CHRONIC BACK PAIN. NO ACUTE CHANGES NOTED OVERNIGHT. BED LOCKED AND IN LOWEST POSITION, CALL LIGHT WITHIN REACH.
[2023-03-06 05:28] LABS: Albumin, Blood 2.5 g/dL (3.4-5.0); Anion Gap 4 mmol/L (6-16); Blood Urea Nitrogen 25 mg/dL (8-24); Bun/Creatinine Ratio 24.5 (12.0-20.0); CO2, Blood 26 mmol/L (21-32); Calcium, Blood 8.5 mg/dL (8.5-10.1); Chloride, Blood 112 mmol/L (98-108); Creatinine, Blood 1.02 mg/dL (0.40-1.00); Glomerular Filtration Rate 58 (60-); Glucose, Blood 111 mg/dL (70-99); Phosphorus, Blood 2.9 mg/dL (2.5-4.9); Potassium, Blood 3.6 mmol/L (3.5-5.5); Sodium, Blood 142 mmol/L (136-145)
[2023-03-06 07:32] VITALS: BP 131/83
[2023-03-06] MEDS ORDERED: CEFU500T30 PO (10:58)
[2023-03-06] MEDS ORDERED: Aspir 8181 MG PO (10:58)
[2023-03-06] MEDS ORDERED: VISBIOME 112.51 EACH PO (10:58)
--- NOTE | 2023-03-06 11:29 | NUR ---
DISCHARGE NOTE PT DISCHARGED HOME AT APPROX 11:25. PT PROVIDED W/ VERBAL AND WRITTEN INSTRUCTIONS AND REPORTED UNDERSTANDING. A&OX4, VSS, AMB IND, TOLERATING PO, VOIDING, AND PAIN MANAGED. BELONGINGS WERE RETURNED AND ESCOURTED OUT VIA W/C BY ALONDRA TSE.
== END 2023-03-06 11:28 | disposition home health service (06) | DRG 690 ==
LOC: ER 09:40 → MEDS 15:49 → ENPENDDIS 03-06 11:18 → MEDS 03-06 11:28
PROVIDERS: Physician Assistant; ADMIT Internal Medicine
DX: N39.0 Urinary tract infection, site not specified (principal); N17.9 Acute kidney failure, unspecified; G93.49 Other encephalopathy; R44.0 Auditory hallucinations; B96.20 Unspecified Escherichia coli [E. coli] as the cause of diseases classified elsewhere; I10 Essential (primary) hypertension; E78.5 Hyperlipidemia, unspecified; Z66 Do not resuscitate; E03.9 Hypothyroidism, unspecified; M54.9 Dorsalgia, unspecified; G89.29 Other chronic pain; K21.9 Gastro-esophageal reflux disease without esophagitis; N20.0 Calculus of kidney; Z96.653 Presence of artificial knee joint, bilateral; Z88.1 Allergy status to other antibiotic agents; Z79.899 Other long term (current) drug therapy; Z88.5 Allergy status to narcotic agent; Z79.82 Long term (current) use of aspirin; Z79.891 Long term (current) use of opiate analgesic; Z86.79 Personal history of other diseases of the circulatory system; Z87.442 Personal history of urinary calculi; Z98.890 Other specified postprocedural states; Z96.612 Presence of left artificial shoulder joint; Z96.611 Presence of right artificial shoulder joint; Z98.84 Bariatric surgery status; Z90.89 Acquired absence of other organs; Z87.891 Personal history of nicotine dependence; Z60.2 Problems related to living alone
CPT/HCPCS: 36415; 76770; 80048; 80053; 80069; 81001; 84145; 85025; 85027; 87077; 87086; 87186; 96365; 97110; 97116; 97162; 97165; 97530; 99284-25; A9270; C1751; J0696; J1650; J7030

== ENCOUNTER 2023-03-08 19:15 | Emergency (ER) | payer MEDICARE ==
[~2023-03-08] VITALS: Ht 162.6 cm; Wt 99.8 kg
[~2023-03-08 19:15] MED LIST changes: +Aspir 8181 MG PO; +CEFU500T30 PO; +VISBIOME 112.51 EACH PO
[2023-03-08 23:13] LABS: Source, Urine Clean Catch
[2023-03-08 23:25] LABS: Bilirubin, Urine Neg (Neg); Blood, Urine 5+ (Neg); Glucose Qualitative, Urine Neg (Neg); Ketones, Urine Neg (Neg); Leukocyte Esterase, Urine 2+ (Neg); Nitrite, Urine Neg (Neg); Protein, Urine 1+ (Neg); Urobilinogen, Urine NORM (Normal); pH, Urine 6.5 (5.0-8.0)
[2023-03-08 23:32] LABS: Appearance, Urine Hazy (Clear); Color, Urine Yellow (P-Yellow)
[2023-03-08 23:36] LABS: Bacteria Few /hpf; Red Blood Cells, Urine 25-50 /hpf (0-2); Squamous Epithelial Cells Rare /hpf (Few)
[2023-03-09 00:29] LABS: BASOPHILS ABSOLUTE AUTO 0.02 K/mm3 (0.00-0.23); BASOPHILS PERCENT AUTO 0 % (0-2); EOSINOPHILS ABSOLUTE AUTO 0.08 K/mm3 (0.00-0.68); EOSINOPHILS PERCENT AUTO 2 % (0-6); Hematocrit 31.5 % (33.0-51.0); Hemoglobin 10.3 g/dL (11.5-16.0); IMMATURE GRAN ABSOLUTE AUTO 0.05 K/mm3 (0.00-0.10); IMMATURE GRAN PERCENT AUTO 1 % (0-1); LYMPHOCYTES ABSOLUTE AUTO 1.06 K/mm3 (0.84-5.20); LYMPHOCYTES PERCENT AUTO 20 % (21-46); MONOCYTES ABSOLUTE AUTO 0.59 K/mm3 (0.16-1.47); MONOCYTES PERCENT AUTO 11 % (4-13); Mean Corpuscular HGB Conc 32.7 g/dL (31.5-36.5); Mean Corpuscular Volume 95 fL (80-100); Mean Platelet Volume 10.7 fL (9.1-12.4); NEUTROPHILS ABSOLUTE AUTO 3.57 K/mm3 (1.96-9.15); NEUTROPHILS PERCENT AUTO 67 % (41-73); Platelet Count 188 K/mm3 (150-400); RDW Coefficient Variation 13.8 % (11.7-14.2); RDW Standard Deviation 48.3 fL (35.1-46.3); Red Blood Cell Count 3.32 M/mm3 (3.80-5.20); White Blood Cell Count 5.37 K/mm3 (4.00-11.30)
[2023-03-09 01:00] VITALS: BP 146/85
[2023-03-09 01:13] LABS: Albumin, Blood 2.4 g/dL (3.4-5.0); Albumin/Globulin Ratio 0.5 (0.8-1.8); Bilirubin, Total 0.4 mg/dL (0.1-1.0); Bun/Creatinine Ratio 20.1 (12.0-20.0); Calcium, Blood 8.3 mg/dL (8.5-10.1); Creatinine, Blood 0.9 mg/dL (0.40-1.00); Globulin, Blood 4.4 g/dL (2.2-4.0); Potassium, Blood 4.4 mmol/L (3.5-5.5); Total Protein, Blood 6.8 g/dL (6.4-8.2)
== END 2023-03-09 01:50 | disposition home or self-care (01) ==
LOC: ER 19:15
PROVIDERS: Emergency Medicine
DX: R41.82 Altered mental status, unspecified (principal); I10 Essential (primary) hypertension; E03.9 Hypothyroidism, unspecified; Z87.440 Personal history of urinary (tract) infections; Z87.891 Personal history of nicotine dependence; Z87.442 Personal history of urinary calculi; Z88.5 Allergy status to narcotic agent; Z88.1 Allergy status to other antibiotic agents; Z79.899 Other long term (current) drug therapy; Z79.82 Long term (current) use of aspirin
CPT/HCPCS: 71045; 80053; 81001; 85025; 87086; 96360; 96361; 99284-25; A9270; J7030

== ENCOUNTER → 2023-04-01 | Outpatient (CLI) | payer MEDICARE ==
[2023-04-01 12:31] LABS: Source, Urine Clean Catch
[2023-04-01 12:35] LABS: Appearance, Urine Hazy (Clear); Bilirubin, Urine Neg (Neg); Blood, Urine 5+ (Neg); Color, Urine Yellow (P-Yellow); Glucose Qualitative, Urine Neg (Neg); Ketones, Urine Neg (Neg); Leukocyte Esterase, Urine 3+ (Neg); Nitrite, Urine Pos (Neg); Protein, Urine 1+ (Neg); Specific Gravity, Urine 1.015 (1.003-1.022); Urobilinogen, Urine NORM (Normal)
[2023-04-01 12:48] LABS: Bacteria Many /hpf; White Blood Cells, Urine TNTC /hpf (0-5)
[2023-04-01 12:51] LABS: Squamous Epithelial Cells Few /hpf (Few)
[2023-04-01 12:53] LABS: Mucus Light (0-Heavy)
[2023-04-01 12:55] LABS: Hyaline Casts 0-2 /lpf (0-2)
== END | disposition home or self-care (01) ==
LOC: LAB SHORT 10:57 → LAB 10:57
PROVIDERS: Student in an Organized Health Care Education/Training Program
DX: N39.0 Urinary tract infection, site not specified (principal)
CPT/HCPCS: 81001; 87077; 87086; 87186

== ENCOUNTER → 2023-04-15 | Outpatient (CLI) | payer MEDICARE | LOC: LAB SHORT 16:33 → LAB 16:33 | DX: N39.0 Urinary tract infection, site not specified (principal) | CPT/HCPCS: 87077; 87086; 87186 ==

== ENCOUNTER 2023-05-05 12:53 | Emergency (ER) | payer OTHER, MEDICARE ==
[~2023-05-05] VITALS: Ht 165.1 cm; Wt 95.2 kg
[2023-05-05 13:12] VITALS: BP 130/89
== END 2023-05-05 14:29 | disposition home or self-care (01) ==
LOC: ER 12:53
DX: S63.92XA Sprain of unspecified part of left wrist and hand, initial encounter (principal); S20.212A Contusion of left front wall of thorax, initial encounter; I10 Essential (primary) hypertension; E03.9 Hypothyroidism, unspecified; Z87.891 Personal history of nicotine dependence; Z79.82 Long term (current) use of aspirin; Z79.899 Other long term (current) drug therapy; Z88.1 Allergy status to other antibiotic agents; Z88.5 Allergy status to narcotic agent; W01.198A Fall on same level from slipping, tripping and stumbling with subsequent striking against other object, initial encounter
CPT/HCPCS: 71101; 73110; 99283-25

== ENCOUNTER 2023-09-11 07:50 | Emergency (ER) | payer OTHER ==
[~2023-09-11] VITALS: Ht 162.6 cm; Wt 99.8 kg
[2023-09-11 08:06] VITALS: BP 154/79
[2023-09-11 09:43] LABS: Source, Urine Clean Catch
[2023-09-11 09:54] LABS: Appearance, Urine Hazy (Clear); Bilirubin, Urine Neg (Neg); Blood, Urine 3+ (Neg); Color, Urine Yellow (P-Yellow); Glucose Qualitative, Urine Neg (Neg); Ketones, Urine Neg (Neg); Leukocyte Esterase, Urine 3+ (Neg); Nitrite, Urine Pos (Neg); Protein, Urine 1+ (Neg); Specific Gravity, Urine 1.015 (1.003-1.022); Urobilinogen, Urine NORM (Normal)
[2023-09-11 10:01] LABS: Bacteria Many /hpf; Squamous Epithelial Cells Few /hpf (Few)
[2023-09-11 10:31] LABS: BASOPHILS ABSOLUTE AUTO 0.02 K/mm3 (0.00-0.23); BASOPHILS PERCENT AUTO 0 % (0-2); EOSINOPHILS ABSOLUTE AUTO 0.07 K/mm3 (0.00-0.68); EOSINOPHILS PERCENT AUTO 1 % (0-6); Hematocrit 35.8 % (33.0-51.0); Hemoglobin 11.4 g/dL (11.5-16.0); IMMATURE GRAN ABSOLUTE AUTO 0.04 K/mm3 (0.00-0.10); IMMATURE GRAN PERCENT AUTO 1 % (0-1); LYMPHOCYTES ABSOLUTE AUTO 0.98 K/mm3 (0.84-5.20); LYMPHOCYTES PERCENT AUTO 13 % (21-46); MONOCYTES ABSOLUTE AUTO 0.44 K/mm3 (0.16-1.47); MONOCYTES PERCENT AUTO 6 % (4-13); Mean Corpuscular HGB 31.5 pg (26.0-34.0); Mean Corpuscular HGB Conc 31.8 g/dL (31.5-36.5); Mean Corpuscular Volume 99 fL (80-100); Mean Platelet Volume 9.8 fL (9.1-12.4); NEUTROPHILS PERCENT AUTO 79 % (41-73); Platelet Count 167 K/mm3 (150-400); RDW Coefficient Variation 13.4 % (11.7-14.2); RDW Standard Deviation 48.7 fL (35.1-46.3); Red Blood Cell Count 3.62 M/mm3 (3.80-5.20); White Blood Cell Count 7.35 K/mm3 (4.00-11.30)
[2023-09-11 10:42] LABS: Albumin, Blood 3.9 g/dL (3.4-5.0); Albumin/Globulin Ratio 1.1 (0.8-1.8); Bilirubin, Total 0.4 mg/dL (0.1-1.0); Bun/Creatinine Ratio 17.8 (12.0-20.0); Creatinine, Blood 1.01 mg/dL (0.40-1.00); Globulin, Blood 3.7 g/dL (2.2-4.0); Potassium, Blood 4.4 mmol/L (3.5-5.5); Total Protein, Blood 7.6 g/dL (6.4-8.2)
[2023-09-11] MEDS ORDERED: CEFP200 PO (10:56)
== END 2023-09-11 11:31 | disposition home or self-care (01) ==
LOC: ER 07:50
PROVIDERS: Emergency Medicine
DX: Z43.6 Encounter for attention to other artificial openings of urinary tract (principal); N39.0 Urinary tract infection, site not specified; N20.0 Calculus of kidney; I10 Essential (primary) hypertension; E03.9 Hypothyroidism, unspecified; Z87.891 Personal history of nicotine dependence
CPT/HCPCS: 74018; 80053; 81001; 85025; 87077; 87086; 87186; 99283-25

== ENCOUNTER 2023-11-29 20:09 | Emergency (ER) | payer OTHER ==
[~2023-11-29] VITALS: Ht 160 cm; Wt 99.8 kg
[~2023-11-29 20:09] MED LIST changes: +ELIQUIS5 M3 PO; +ESCI10 PO; +LIDO700A20 TOP; +METOPROLOL TART25 MG PO; +PANT40 PO; -Pantoprazole So40 MG PO; +TRAZ100 PO
[2023-11-29] MEDS ORDERED: Acetaminophen 500 MG Tab PO PRN (20:25)
[2023-11-29 20:42] LABS: Source, Urine Clean Catch
[2023-11-29 20:44] LABS: BASOPHILS ABSOLUTE AUTO 0.02 K/mm3 (0.00-0.23); BASOPHILS PERCENT AUTO 0 % (0-2); EOSINOPHILS ABSOLUTE AUTO 0.07 K/mm3 (0.00-0.68); EOSINOPHILS PERCENT AUTO 1 % (0-6); Hematocrit 29.9 % (33.0-51.0); Hemoglobin 9.2 g/dL (11.5-16.0); IMMATURE GRAN ABSOLUTE AUTO 0.01 K/mm3 (0.00-0.10); IMMATURE GRAN PERCENT AUTO 0 % (0-1); LYMPHOCYTES ABSOLUTE AUTO 0.73 K/mm3 (0.84-5.20); LYMPHOCYTES PERCENT AUTO 14 % (21-46); MONOCYTES ABSOLUTE AUTO 0.55 K/mm3 (0.16-1.47); MONOCYTES PERCENT AUTO 10 % (4-13); Mean Corpuscular HGB 29.1 pg (26.0-34.0); Mean Corpuscular HGB Conc 30.8 g/dL (31.5-36.5); Mean Corpuscular Volume 95 fL (80-100); NEUTROPHILS PERCENT AUTO 74 % (41-73); Platelet Count 157 K/mm3 (150-400); RDW Coefficient Variation 14.7 % (11.7-14.2); Red Blood Cell Count 3.16 M/mm3 (3.80-5.20); White Blood Cell Count 5.38 K/mm3 (4.00-11.30)
[2023-11-29] MEDS ORDERED: Ketorolac Tromethamine 15mg Vial IV ONE (20:45)
[2023-11-29] MEDS ORDERED: Lactated Ringer's 1,000 ML IV ONE (20:45)
[2023-11-29 20:46] LABS: Appearance, Urine Turbid (Clear); Bilirubin, Urine Neg (Neg); Blood, Urine 5+ (Neg); Color, Urine Red (P-Yellow); Glucose Qualitative, Urine Neg (Neg); Ketones, Urine 1+ (Neg); Leukocyte Esterase, Urine 3+ (Neg); Nitrite, Urine Neg (Neg); Protein, Urine 3+ (Neg); Urobilinogen, Urine NORM (Normal)
[2023-11-29 20:54] LABS: Bacteria Many /hpf; Red Blood Cells, Urine TNTC /hpf (0-2); Squamous Epithelial Cells Few /hpf (Few); White Blood Cells, Urine 25-50 /hpf (0-5)
[2023-11-29 20:56] LABS: Renal Epithelial Rare /hpf (0-Rare)
[2023-11-29] MEDS ORDERED: CefTRIAXone Sodium 1,000 MG in NS 100 ML IV ONE (21:00)
[2023-11-29 21:14] LABS: Albumin, Blood 2.8 g/dL (3.4-5.0); Albumin/Globulin Ratio 0.6 (0.8-1.8); Bilirubin, Total 0.3 mg/dL (0.1-1.0); Bun/Creatinine Ratio 16.6 (12.0-20.0); Calcium, Blood 8.2 mg/dL (8.5-10.1); Creatinine, Blood 0.84 mg/dL (0.40-1.00); Globulin, Blood 4.4 g/dL (2.2-4.0); Magnesium, Blood 2.1 mg/dL (1.6-2.4); Potassium, Blood 3.8 mmol/L (3.5-5.5); Total Protein, Blood 7.2 g/dL (6.4-8.2)
[2023-11-29 22:25] LABS: Influenza A, PCR NEGATIVE (NEGATIVE); Influenza B, PCR NEGATIVE (NEGATIVE); Resp Syncytial Virus, PCR NEGATIVE (NEGATIVE); SARS-Cov-2 (COVID-19) PCR, MMC NEGATIVE (NEGATIVE)
[2023-11-29] MEDS ORDERED: ROSUVASTATIN CA10 MG PO (22:56)
[2023-11-29] MEDS ORDERED: CEFD300 PO ×2 (23:11→23:28)
[2023-11-29 23:25] VITALS: BP 120/69
[2023-12-03] MEDS ORDERED: CEFDINIR300 M4 PO (16:39)
[2023-12-03] MEDS ORDERED: HYDROCODONE-AC1 EAC7 PO (16:40)
[2023-12-03] MEDS ORDERED: METOPROLOL TART25 MG PO (16:40)
[2023-12-03] MEDS ORDERED: NEURONTIN300 MG (16:42)
[2023-12-03] MEDS ORDERED: NITROFURANTOIN5012 PO (16:42)
[2023-12-03] MEDS ORDERED: GABA300 PO (19:23)
[2023-12-03] MEDS ORDERED: METHI10 PO (19:25)
== END 2023-11-29 23:25 | disposition home or self-care (01) ==
LOC: ER 20:09
PROVIDERS: Emergency Medicine
DX: N39.0 Urinary tract infection, site not specified (principal); E86.0 Dehydration; Z96.0 Presence of urogenital implants; Z79.899 Other long term (current) drug therapy; Z88.5 Allergy status to narcotic agent; Z88.1 Allergy status to other antibiotic agents; Z79.82 Long term (current) use of aspirin; I10 Essential (primary) hypertension; E03.9 Hypothyroidism, unspecified; K21.9 Gastro-esophageal reflux disease without esophagitis; Z87.891 Personal history of nicotine dependence
CPT/HCPCS: 0241U; 36415; 73562-LT; 80053; 81001; 83605; 83690; 83735; 84145; 85025; 85651; 87040; 87077; 87086; 87186; 96365; 99283-25; A9270; J0696; J7120

== ENCOUNTER 2023-12-30 01:14 | Inpatient (IN) | payer OTHER ==
[~2023-12-30] VITALS: Ht 160 cm; Wt 100.0 kg
[~2023-12-30 01:14] MED LIST changes: +CEFD300 PO; +CEFDINIR300 M4 PO; +HYDROCODONE-AC1 EAC7 PO; +METHI10 PO; +NEURONTIN300 MG; +NITROFURANTOIN5012 PO; +ROSUVASTATIN CA10 MG PO
[2023-12-30 02:31] LABS: Source, Urine Clean Catch
[2023-12-30 02:35] LABS: BASOPHILS ABSOLUTE AUTO 0.02 K/mm3 (0.00-0.23); BASOPHILS PERCENT AUTO 1 % (0-2); EOSINOPHILS ABSOLUTE AUTO 0.21 K/mm3 (0.00-0.68); EOSINOPHILS PERCENT AUTO 5 % (0-6); Hematocrit 27.1 % (33.0-51.0); Hemoglobin 8.2 g/dL (11.5-16.0); IMMATURE GRAN ABSOLUTE AUTO 0.01 K/mm3 (0.00-0.10); IMMATURE GRAN PERCENT AUTO 0 % (0-1); LYMPHOCYTES ABSOLUTE AUTO 1.15 K/mm3 (0.84-5.20); LYMPHOCYTES PERCENT AUTO 29 % (21-46); MONOCYTES ABSOLUTE AUTO 0.34 K/mm3 (0.16-1.47); MONOCYTES PERCENT AUTO 9 % (4-13); Mean Corpuscular HGB 29.3 pg (26.0-34.0); Mean Corpuscular HGB Conc 30.3 g/dL (31.5-36.5); Mean Corpuscular Volume 97 fL (80-100); Mean Platelet Volume 9.3 fL (9.1-12.4); NEUTROPHILS ABSOLUTE AUTO 2.18 K/mm3 (1.96-9.15); NEUTROPHILS PERCENT AUTO 56 % (41-73); Platelet Count 196 K/mm3 (150-400); RDW Coefficient Variation 16.1 % (11.7-14.2); RDW Standard Deviation 58.1 fL (35.1-46.3); White Blood Cell Count 3.91 K/mm3 (4.00-11.30)
[2023-12-30 02:54] LABS: Albumin, Blood 2.6 g/dL (3.4-5.0); Albumin/Globulin Ratio 0.6 (0.8-1.8); Bilirubin, Total 0.2 mg/dL (0.1-1.0); Bun/Creatinine Ratio 10.4 (12.0-20.0); Calcium, Blood 8.2 mg/dL (8.5-10.1); Creatinine, Blood 0.96 mg/dL (0.40-1.00); Globulin, Blood 4.2 g/dL (2.2-4.0); Potassium, Blood 3.5 mmol/L (3.5-5.5); Total Protein, Blood 6.8 g/dL (6.4-8.2)
[2023-12-30 03:07] LABS: Appearance, Urine Turbid (Clear); Bilirubin, Urine Neg (Neg); Blood, Urine 5+ (Neg); Color, Urine Brown (P-Yellow); Glucose Qualitative, Urine Neg (Neg); Ketones, Urine Neg (Neg); Leukocyte Esterase, Urine 3+ (Neg); Nitrite, Urine Pos (Neg); Protein, Urine 3+ (Neg); Specific Gravity, Urine 1.015 (1.003-1.022); Urobilinogen, Urine 1+ (Normal); pH, Urine 6.5 (5.0-8.0)
[2023-12-30 03:08] LABS: Bacteria Mod /hpf; Red Blood Cells, Urine TNTC /hpf (0-2); Squamous Epithelial Cells Not Seen /hpf (Few); White Blood Cells, Urine TNTC /hpf (0-5)
[2023-12-30] MEDS ORDERED: CefTRIAXone Sodium 1,000 MG in NS 50 ML IV ONE (04:50)
[2023-12-30] MEDS ORDERED: Ampicillin Sodiu2 G1 IV (07:21)
[2023-12-30] MEDS ORDERED: BISA5EC PO (07:24)
[2023-12-30] MEDS ORDERED: FERSU300 PO (07:25)
[2023-12-30] MEDS ORDERED: OXYC10TA19 PO (07:28)
[2023-12-30] MEDS ORDERED: Acetaminophen 500 MG Tab PO PRN (07:45)
[2023-12-30] MEDS ORDERED: OxyCODONE HCL 5 MG TAB PO PRN (07:45)
[2023-12-30] MEDS ORDERED: Ampicillin Sod 2,000 MG in NS 100 ML IV SCH (08:00)
[2023-12-30] MEDS ORDERED: Metoprolol Tartrate 25 MG Tab PO SCH (08:00)
[2023-12-30] MEDS ORDERED: Rosuvastatin Calcium 10 MG Tab PO SCH (09:00)
[2023-12-30] MEDS ORDERED: Gabapentin 300 MG Cap PO SCH (09:00)
[2023-12-30] MEDS ORDERED: Bisacodyl 5 MG TabEC PO SCH (09:00)
[2023-12-30] MEDS ORDERED: Lisinopril 20 MG Tab PO SCH (09:00)
[2023-12-30] MEDS ORDERED: Apixaban 5 MG Tab PO SCH (09:00)
[2023-12-30] MEDS ORDERED: Citalopram Hydrobromide 20 MG Tab PO SCH (09:00)
[2023-12-30] MEDS ORDERED: Lactobacil 2-S.Thermo-Bifido 1 1 Cap PO SCH (09:00)
[2023-12-30] MEDS ORDERED: methIMAzole 5 MG TABLET PO SCH (09:00)
[2023-12-30] MEDS ORDERED: Ferrous Sulfate 325 MG Tab PO SCH (09:00)
--- NOTE | 2023-12-30 10:00 | NUR ---
ADMISSION NOTE PATIENT A/OX4, ABLE TO MAKE NEEDS KNOWN. INDEPENDENT WITH AMBULATION IN ROOM. ADMISSION DOCUMENTATION COMPLETED. PATIENT EDUCATED AND ORIENTED TO ROOM AND CALL LIGHT. PREVIOUS NEPHROSTOMY SITE WITH DRIED SCAB, NO DRAINAGE NOTED, LEFT OPEN TO AIR. PLAN TO HAVE NEPHROSTOMY REPLACED TODAY. NO OTHER CONCERNS AT THIS TIME.
[2023-12-30 14:42] VITALS: BP 154/84
--- NOTE | 2023-12-30 17:53 | NUR ---
SHIFT SUMMARY PATIENT A/OX4, PLEASANT AND COOPERATIVE WITH CARE. PATIENT NPO PENDING PEHROSTOMY PLACEMENT. ABDOMINAL CT OBTAINED THIS EVENING. PICC LINE TO LEFT UPPER ARM WORKING PROPERLY, PRESENT ON ADMISSION AND PLACED ON PREVIOUS ADMISSION TO [facility]. ANTIBIOTICS INFUSED PER JUL. PATIENT COMPLAINING OF PAIN TO RIGHT FLANK AND LEFT KNEE. NO OTHER CONCERNS AT THIS TIME.
[2023-12-30] MEDS ORDERED: NS 250 ML IV PRN (20:25)
[2023-12-30 20:40] VITALS: BP 160/84
[2023-12-30] MEDS ORDERED: TraZODone HCl 100 MG Tab PO SCH (21:00)
[2023-12-31 02:59] VITALS: BP 142/99
[2023-12-31] MEDS ORDERED: NS 0 ML IV ONE (03:59)
[2023-12-31] MEDS ORDERED: Ampicillin Sodium 2000MG Vial ONE ×6 (04:00→20:34)
[2023-12-31 05:26] LABS: Hematocrit 25.6 % (33.0-51.0); Hemoglobin 7.7 g/dL (11.5-16.0); Mean Corpuscular HGB 29.1 pg (26.0-34.0); Mean Corpuscular HGB Conc 30.1 g/dL (31.5-36.5); Mean Corpuscular Volume 97 fL (80-100); Mean Platelet Volume 9.3 fL (9.1-12.4); Platelet Count 170 K/mm3 (150-400); RDW Coefficient Variation 16.2 % (11.7-14.2); RDW Standard Deviation 58.1 fL (35.1-46.3); Red Blood Cell Count 2.65 M/mm3 (3.80-5.20); White Blood Cell Count 3.39 K/mm3 (4.00-11.30)
--- NOTE | 2023-12-31 05:29 | NUR ---
SHIFT SUMMARY PT A&OX4 AND ANSWERS QUESTIONS APPROPRIATELY. PT RECEIVED HS MEDICATIONS AND PRN MEDICATIONS. VSS, NO COMPLAINTS OF CP/PRESSURE OR SOB. PT SPENT MOST OF NIGHT IN BED WITH EYES CLOSED AND RESPIRATIONS EVEN AND UNLABORED. NO ACUTE EVENTS AT THIS TIME. PT LEFT IN A POSITION OF SAFETY WITH FALL PRECAUTIONS IN PLACE AND CALL LIGHT IN REACH.
[2023-12-31] MEDS ORDERED: Pantoprazole Sodium 40 MG Tab PO SCH (06:00)
--- NOTE | 2023-12-31 06:12 | NUR ---
CONSULT FAXED TO DR MARTINEZ
[2023-12-31 07:51] VITALS: BP 155/82
[2023-12-31] MEDS ORDERED: NS 100 ML IV ONE ×6 (08:52→20:33)
--- NOTE | 2023-12-31 13:25 | NUR ---
Have been kicked out of the system for a bit of time today so taking wrtten notes... 12:30 patient called for SHower, assist to setup, ISO covid and ecoli room so stripped bed and sterilize all hard surfaces while shes in the restroom. Fresh linens placed, garbage and linens out.
--- NOTE | 2023-12-31 14:59 | NUR ---
CALLED [facility] TO SEE WHEN PATIENT WAS SCHEDULED FOR NEPHROSTOMY REPLACEMENT. WAS INFORMED THAT SURGEON STATED NEPHROSTOMY REPLACEMENT IS NOT INDICATED AT THIS TIME AND TO CONTINUE TO MONITOR. CALLED DR. LACKEY TO INFORM HIM OF STATUS. NEW ORDERS RECIEVED FOR DIET. WILL INFORM PATIENT. NO OTHER CONCERNS AT THIS TIME.
[2023-12-31] MEDS ORDERED: CefTRIAXone Sodium 1,000 MG in NS 100 ML IV SCH (15:00)
[2023-12-31 15:44] VITALS: BP 147/80
[2023-12-31] MEDS ORDERED: CefTRIAXone 1000 MG Vial ONE (15:44)
--- NOTE | 2023-12-31 17:57 | NUR ---
SHIFT SUMMARY PATIENT A/OX4. INDEPENDENT IN ROOM WITH AMBULATION. CONTINENT OF BOWEL AND BLADDER, URINE PINK AND CLOUDY. PATIENT COMPLAINS OF LOWER BACK, RIGHT FLANK, AND LEFT KNEE PAIN. MEDICATED PER JUL. IV ANTIBITOICS INFUSED PER JUL. PATIENT NO LONGER NEEDED NEPHROSTOMY REPLACED, AND HAS NEW ORDERS FOR REGULAR DIET. TOLERATING WELL. PATIENT HAD SHOWER THIS EVENING. REMAINS ON COVID PRECUATIONS AND CONTACT PRECAUTIONS FOR [facility]. LEFT KNEE WARM TO TOUCH WITH MILD SWELLING AND PREVIOUS NEPHROSTOMY SITE SCABBED AND OPEN TO AIR. NO OTHER CONCERNS AT THIS TIME.
[2023-12-31 20:51] VITALS: BP 134/77
[2023-12-31] MEDS ORDERED: Miconazole 2% Vaginal Cream 45 GM VAG SCH (21:00)
[2024-01-01] MEDS ORDERED: NS 100 ML IV ONE ×8 (00:28→23:53)
[2024-01-01] MEDS ORDERED: Ampicillin Sodium 2000MG Vial ONE ×7 (00:28→23:53)
[2024-01-01 02:35] VITALS: BP 145/87
--- NOTE | 2024-01-01 06:46 | NUR ---
SHIFT SUMMARY PT A&O X4, PLEASANT AND COOPERATIVE WITH CARE. VSS; SBP 130 - 140'S, HR 70 - 90'S, SPO2 WNL. PT DENIES CP/PRESSURE, SOB, DIZZINESS, N/V/D. PT C/O OF L KNEE PAIN T/O THE SHIFT; REPOSITIONING, REST AND MEDICATION PER JUL PROVIDED WITH ADEQUATE RELIEF. PT DECLINED HEAT OR ICE. L KNEE NOTED WITH MILD-MODERATE SWELLING AND TENDER. NO REDNESS NOTED BUT IS SLIGHTLY WARM TO THE TOUCH. OTHERWISE, NO ACUTE CHANGES THIS SHIFT. PT AMBULATING TO RESTROOM INDEPENDENTLY OR SBA FOR CORD MANAGEMENT. ABX PER JUL. ABLE TO MAKE NEEDS KNOWN. WILL UPDATE ONCOMING RN
[2024-01-01] MEDS ORDERED: CefTRIAXone 1000 MG Vial ONE (07:39)
[2024-01-01 07:54] VITALS: BP 163/90
--- NOTE | 2024-01-01 09:00 | NUR ---
pt laying in bed awake a/ox4, pleasant and cooperative with care, follows commands well, reports knee pain, medicated for that, lungs are clear t/o, resp even and unlabored, no cough noted, hrr, no edema noted, ppp+1, cap refill <3sec, vs stable, afebrile, picc line to mila site is clear and patent, infusing ns tko, btx, abd flat soft nontender, voids without diff, skin c/w/d, has healing surgical knee wound, maew, up ad roger in room, gait noted to be steady, husam, call light in reach.
[2024-01-01] MEDS ORDERED: [UNRECOGNIZED DRUG - CODE] VAG (12:56)
[2024-01-01 15:55] VITALS: BP 143/75
--- NOTE | 2024-01-01 18:34 | NUR ---
pt doing ok this evening but mentioned that her left knee is warmer than her right knee. is a bit tearful about that, this nurse checked her knees and is notibly warmer, but no redness or obvious swelling noted from what was this am, no further changes this shift. call light in reach.
[2024-01-01 23:16] VITALS: BP 139/79
[2024-01-02 02:57] VITALS: BP 174/98
[2024-01-02] MEDS ORDERED: Ampicillin Sodium 2000MG Vial ONE ×3 (05:32→12:00)
[2024-01-02] MEDS ORDERED: NS 100 ML IV ONE ×4 (05:32→12:00)
--- NOTE | 2024-01-02 06:34 | NUR ---
0200 TOOK OVER CARE OF PT, AGREE WITH PREVIOUS NURSES ASSESSMENT AT THIS TIME. PT LYING IN BED, APPEARS TO BE RESTING. BREATHING IS EVEN, UNLABORED. NO APPARENT SIGNS OF DISTRESS. CALL LIGHT IS IN REACH.
--- NOTE | 2024-01-02 06:35 | NUR ---
0400 PT LYING IN BED, EYES CLOSED, WAKES EASILY TO VERBAL STIMULI. NO APPARENT SIGNS OF DISTRESS. CALL LIGHT IS IN REACH.
--- NOTE | 2024-01-02 06:36 | NUR ---
PT IS AAO X 4, ON RA. CHRONIC L KNEE PAIN, GOT LOU AND TYLENOL.
--- NOTE | 2024-01-02 06:37 | NUR ---
PT LYING IN BED, WAKES EASILY TO VERBAL STIMULI. REQUESTED AND RECIEVED TYLENOL, WILL EVAL FOR EFFECT. NO OTHER APPARENT SIGNS OF DISTRESS. CALL LIGHT IS IN REACH. NO OTHER CHANGES THIS SHIFT.
[2024-01-02] MEDS ORDERED: CefTRIAXone 1000 MG Vial ONE (07:28)
[2024-01-02 08:10] VITALS: BP 159/90
--- NOTE | 2024-01-02 09:00 | NUR ---
pt laying in bed awake a/ox4, pleasant and cooperative with care, follows commands well, asking for pain meds this am, rates pain at 7/10 in her left knee, lungs are clear t/o, resp even and unlabored, no cough noted, hrr, no edema noted, ppp+2, cap refill <3 sec, vs stable, afebrile, picc line to mila site is clear and patent, btx4, abd flat soft nontender, voids without diff, skin c/w/d, maew, husam, call light in reach.
[2024-01-02] MEDS ORDERED: DOCU100 PO (11:21)
--- NOTE | 2024-01-02 14:34 | NUR ---
DISCHARGE PATIENT DISCHARGED TO [facility]. PATIENT ALERT AND INTERACTIVE. PATIENT ABLE TO TRANSFER TO TRANSPORTATION WHEELCHAIR. BELONGINGS SENT WITH PATIENT. ROOM CHECK DONE BEFORE PATIENT DEPARTED. DISCHARGE PAPERWORK GIVEN TO TRANSPORTER. PICC LINE IN PLACE FOR CONTINUED ANTIBIOTIC THERAPY
[2024-01-03] MEDS ORDERED: Docusate Sodium 100 MG Cap PO SCH (09:00)
== END 2024-01-02 14:36 | DRG 466 ==
LOC: ER 01:14 → ERHOLD 01:27 → MEDS 01:27 → ERHOLD 01:27 → MEDS 09:51
PROVIDERS: Emergency Medicine; Internal Medicine; ADMIT Family Medicine
DX: T83.022A Displacement of nephrostomy catheter, initial encounter (principal); D50.9 Iron deficiency anemia, unspecified; D72.819 Decreased white blood cell count, unspecified; T84.54XA Infection and inflammatory reaction due to internal left knee prosthesis, initial encounter; R78.81 Bacteremia; N20.0 Calculus of kidney; N39.0 Urinary tract infection, site not specified; B96.20 Unspecified Escherichia coli [E. coli] as the cause of diseases classified elsewhere; E03.9 Hypothyroidism, unspecified; K21.9 Gastro-esophageal reflux disease without esophagitis; E78.5 Hyperlipidemia, unspecified; Z98.890 Other specified postprocedural states; Z90.89 Acquired absence of other organs; Z98.84 Bariatric surgery status; Z96.642 Presence of left artificial hip joint; Z88.5 Allergy status to narcotic agent; Z88.1 Allergy status to other antibiotic agents; Z79.899 Other long term (current) drug therapy; Z79.01 Long term (current) use of anticoagulants; Z79.891 Long term (current) use of opiate analgesic; Z79.82 Long term (current) use of aspirin; Z87.891 Personal history of nicotine dependence; Y83.8 Other surgical procedures as the cause of abnormal reaction of the patient, or of later complication, without mention of misadventure at the time of the procedure
CPT/HCPCS: 74150; 80053; 81001; 85025; 85027; 87077; 87086; 87186; 96365; 96366; 96368; 96376; 97112; 97161; 99285-25; A9270; G0378; J0290; J0696; J7050

== ENCOUNTER → 2024-01-23 | Outpatient (CLI) | payer OTHER ==
[~2024-01-23] MED LIST changes: +Ampicillin Sodiu2 G1 IV; +BISA5EC PO; +FERSU300 PO; +OXYC10TA19 PO; +[UNRECOGNIZED DRUG - CODE] VAG
[2024-01-23 19:09] LABS: BASOPHILS ABSOLUTE AUTO 0.02 K/mm3 (0.00-0.23); BASOPHILS PERCENT AUTO 1 % (0-2); EOSINOPHILS ABSOLUTE AUTO 0.14 K/mm3 (0.00-0.68); EOSINOPHILS PERCENT AUTO 3 % (0-6); Hematocrit 28.8 % (33.0-51.0); Hemoglobin 8.8 g/dL (11.5-16.0); IMMATURE GRAN ABSOLUTE AUTO 0.01 K/mm3 (0.00-0.10); IMMATURE GRAN PERCENT AUTO 0 % (0-1); LYMPHOCYTES PERCENT AUTO 22 % (21-46); MONOCYTES ABSOLUTE AUTO 0.31 K/mm3 (0.16-1.47); MONOCYTES PERCENT AUTO 7 % (4-13); Mean Corpuscular HGB 29.7 pg (26.0-34.0); Mean Corpuscular HGB Conc 30.6 g/dL (31.5-36.5); Mean Corpuscular Volume 97 fL (80-100); Mean Platelet Volume 10.6 fL (9.1-12.4); NEUTROPHILS PERCENT AUTO 67 % (41-73); Platelet Count 197 K/mm3 (150-400); RDW Coefficient Variation 15.4 % (11.7-14.2); RDW Standard Deviation 55.1 fL (35.1-46.3); Red Blood Cell Count 2.96 M/mm3 (3.80-5.20); White Blood Cell Count 4.18 K/mm3 (4.00-11.30)
[2024-01-23 19:25] LABS: C-REACTIVE PROTEIN, EXT RANGE <0.290 mg/dL (0.000-0.300)
[2024-01-23 19:32] LABS: Anion Gap 9 mmol/L (3-11); Blood Urea Nitrogen 19 mg/dL (8-24); Bun/Creatinine Ratio 20.7 (12.0-20.0); CO2, Blood 24 mmol/L (21-32); Calcium, Blood 8.2 mg/dL (8.5-10.1); Chloride, Blood 113 mmol/L (98-108); Creatinine, Blood 0.92 mg/dL (0.40-1.00); Glomerular Filtration Rate 65 (60-); Glucose, Blood 78 mg/dL (70-99); Sodium, Blood 142 mmol/L (136-145)
== END ==
LOC: LAB SHORT 17:49 → LAB 17:49
PROVIDERS: Orthopaedic Surgery
DX: T84.54XD Infection and inflammatory reaction due to internal left knee prosthesis, subsequent encounter (principal)
CPT/HCPCS: 80048; 85025; 85651; 86140

== ENCOUNTER 2024-01-31 09:12 | Emergency (ER) | payer OTHER ==
[~2024-01-31] VITALS: Ht 162.6 cm; Wt 95.2 kg
[2024-01-31 09:34] LABS: Source, Urine Clean Catch
[2024-01-31] MEDS ORDERED: Ketorolac Tromethamine 15mg Vial IV ONE (09:40)
[2024-01-31 09:42] LABS: Appearance, Urine Cloudy (Clear); Bilirubin, Urine Neg (Neg); Blood, Urine 5+ (Neg); Color, Urine Amber (P-Yellow); Glucose Qualitative, Urine Neg (Neg); Ketones, Urine Neg (Neg); Leukocyte Esterase, Urine 3+ (Neg); Nitrite, Urine Neg (Neg); Protein, Urine 3+ (Neg); Specific Gravity, Urine 1.015 (1.003-1.022); Urobilinogen, Urine NORM (Normal)
[2024-01-31 10:00] LABS: Red Blood Cells, Urine 50-100 /hpf (0-2); White Blood Cells, Urine 50-100 /hpf (0-5)
[2024-01-31 10:01] LABS: Bacteria Many /hpf; Squamous Epithelial Cells Few /hpf (Few)
[2024-01-31 10:02] LABS: Yeast/Fungi Urine Few /hpf
[2024-01-31 10:03] LABS: Mucus Light (0-Heavy); Transitional Epithelial Cells Rare /hpf (0-Rare)
[2024-01-31 10:05] LABS: BASOPHILS ABSOLUTE AUTO 0.02 K/mm3 (0.00-0.23); BASOPHILS PERCENT AUTO 0 % (0-2); EOSINOPHILS ABSOLUTE AUTO 0.01 K/mm3 (0.00-0.68); EOSINOPHILS PERCENT AUTO 0 % (0-6); Hematocrit 29.3 % (33.0-51.0); IMMATURE GRAN ABSOLUTE AUTO 0.14 K/mm3 (0.00-0.10); IMMATURE GRAN PERCENT AUTO 2 % (0-1); LYMPHOCYTES ABSOLUTE AUTO 0.38 K/mm3 (0.84-5.20); LYMPHOCYTES PERCENT AUTO 4 % (21-46); MONOCYTES ABSOLUTE AUTO 0.35 K/mm3 (0.16-1.47); MONOCYTES PERCENT AUTO 4 % (4-13); Mean Corpuscular HGB 29.1 pg (26.0-34.0); Mean Corpuscular HGB Conc 30.7 g/dL (31.5-36.5); Mean Corpuscular Volume 95 fL (80-100); Mean Platelet Volume 10.2 fL (9.1-12.4); NEUTROPHILS ABSOLUTE AUTO 8.23 K/mm3 (1.96-9.15); NEUTROPHILS PERCENT AUTO 90 % (41-73); Platelet Count 110 K/mm3 (150-400); Red Blood Cell Count 3.09 M/mm3 (3.80-5.20); White Blood Cell Count 9.13 K/mm3 (4.00-11.30)
[2024-01-31 10:28] LABS: Albumin, Blood 2.7 g/dL (3.4-5.0); Albumin/Globulin Ratio 0.7 (0.8-1.8); Bilirubin, Total 0.4 mg/dL (0.1-1.0); Bun/Creatinine Ratio 16.5 (12.0-20.0); Calcium, Blood 8.3 mg/dL (8.5-10.1); Creatinine, Blood 1.39 mg/dL (0.40-1.00); Globulin, Blood 3.7 g/dL (2.2-4.0); Total Protein, Blood 6.4 g/dL (6.4-8.2)
[2024-01-31] MEDS ORDERED: CefTRIAXone Sodium 1,000 MG in NS 100 ML IV ONE (11:15)
[2024-01-31] MEDS ORDERED: NS 1,000 ML IV SCH ×2 (11:15→13:35)
[2024-01-31] MEDS ORDERED: HYDROmorphone HCl/Pf 1MG SYR IV ONE ×2 (11:25→14:25)
[2024-01-31 14:15] VITALS: BP 106/83
[2024-01-31] MEDS ORDERED: Acetaminophen 500 MG Tab PO ONE (14:20)
== END 2024-01-31 14:35 ==
LOC: ER 09:12
PROVIDERS: Physician Assistant
DX: N13.6 Pyonephrosis (principal); I10 Essential (primary) hypertension; E03.9 Hypothyroidism, unspecified; E78.5 Hyperlipidemia, unspecified; K21.9 Gastro-esophageal reflux disease without esophagitis; Z79.01 Long term (current) use of anticoagulants; Z79.82 Long term (current) use of aspirin; Z79.899 Other long term (current) drug therapy; Z93.6 Other artificial openings of urinary tract status; Z88.5 Allergy status to narcotic agent; Z88.8 Allergy status to other drugs, medicaments and biological substances; Z87.891 Personal history of nicotine dependence
CPT/HCPCS: 36415; 74177; 80053; 81001; 83605; 85025; 87040; 87077; 87086; 87186; 96361; 96365-59; 96375; 99283-25; A9270; J0696; J1170; J1885; J7030; Q9967

== ENCOUNTER → 2024-02-25 | Outpatient (CLI) | payer OTHER | LOC: LAB SHORT 10:20 → LAB 10:20 | DX: R39.9 Unspecified symptoms and signs involving the genitourinary system (principal) | CPT/HCPCS: 87077; 87086; 87186 ==

== ENCOUNTER → 2024-03-31 | Outpatient (CLI) | payer OTHER ==
[2024-03-31 11:10] LABS: Source, Urine Clean Catch
[2024-03-31 12:56] LABS: Appearance, Urine Bloody (Clear); Bilirubin, Urine Neg (Neg); Blood, Urine 5+ (Neg); Color, Urine Red (P-Yellow); Glucose Qualitative, Urine Neg (Neg); Ketones, Urine Neg (Neg); Leukocyte Esterase, Urine 3+ (Neg); Nitrite, Urine Neg (Neg); Protein, Urine 4+ (Neg); Specific Gravity, Urine 1.015 (1.003-1.022); Urobilinogen, Urine NORM (Normal)
[2024-03-31 13:16] LABS: Bacteria Mod /hpf; Red Blood Cells, Urine TNTC /hpf (0-2); Squamous Epithelial Cells Rare /hpf (Few); White Blood Cells, Urine 25-50 /hpf (0-5)
== END ==
LOC: LAB SHORT 11:08 → LAB 11:08 → LAB FUT 03-30 15:10
PROVIDERS: Nurse Practitioner Acute Care
DX: N39.0 Urinary tract infection, site not specified (principal)
CPT/HCPCS: 81001; 87077; 87086; 87186

== ENCOUNTER → 2024-06-10 | Outpatient (CLI) | payer OTHER ==
[2024-06-10 13:14] LABS: Source, Urine Clean Catch
[2024-06-10 13:24] LABS: Appearance, Urine Hazy (Clear); Bilirubin, Urine Neg (Neg); Blood, Urine 5+ (Neg); Color, Urine Yellow (P-Yellow); Glucose Qualitative, Urine Neg (Neg); Ketones, Urine Neg (Neg); Leukocyte Esterase, Urine 3+ (Neg); Nitrite, Urine Neg (Neg); Protein, Urine 3+ (Neg); Urobilinogen, Urine NORM (Normal)
[2024-06-10 13:34] LABS: Red Blood Cells, Urine TNTC /hpf (0-2); White Blood Cells, Urine 25-50 /hpf (0-5)
[2024-06-10 13:35] LABS: Bacteria Few /hpf; Squamous Epithelial Cells Few /hpf (Few); Transitional Epithelial Cells Rare /hpf (0-Rare)
== END | disposition home or self-care (01) ==
LOC: LAB 10:51 → LAB SHORT 10:51
PROVIDERS: Urology
DX: N39.0 Urinary tract infection, site not specified (principal)
CPT/HCPCS: 81001; 87077; 87086; 87186

== ENCOUNTER 2024-06-28 08:04 | Emergency (ER) | payer OTHER ==
[~2024-06-28] VITALS: Ht 162.6 cm; Wt 94.8 kg
[~2024-06-28 08:04] MED LIST changes: +AMOCLA875 PO
[2024-06-28 10:58] VITALS: BP 139/77
[2024-06-28] MEDS ORDERED: Norco 10-325 T1 EACH (11:09)
[2024-06-28] MEDS ORDERED: FAMO20 PO (11:11)
[2024-06-28] MEDS ORDERED: METO50ER PO (11:11)
[2024-06-28 11:56] LABS: BASOPHILS ABSOLUTE AUTO 0.02 K/mm3 (0.00-0.23); BASOPHILS PERCENT AUTO 0 % (0-2); EOSINOPHILS ABSOLUTE AUTO 0.13 K/mm3 (0.00-0.68); EOSINOPHILS PERCENT AUTO 2 % (0-6); Hematocrit 27.8 % (33.0-51.0); Hemoglobin 8.1 g/dL (11.5-16.0); IMMATURE GRAN ABSOLUTE AUTO 0.03 K/mm3 (0.00-0.10); IMMATURE GRAN PERCENT AUTO 1 % (0-1); LYMPHOCYTES ABSOLUTE AUTO 1.35 K/mm3 (0.84-5.20); LYMPHOCYTES PERCENT AUTO 25 % (21-46); MONOCYTES ABSOLUTE AUTO 0.44 K/mm3 (0.16-1.47); MONOCYTES PERCENT AUTO 8 % (4-13); Mean Corpuscular HGB 25.6 pg (26.0-34.0); Mean Corpuscular HGB Conc 29.1 g/dL (31.5-36.5); Mean Corpuscular Volume 88 fL (80-100); Mean Platelet Volume 9.4 fL (9.1-12.4); NEUTROPHILS ABSOLUTE AUTO 3.45 K/mm3 (1.96-9.15); NEUTROPHILS PERCENT AUTO 64 % (41-73); Platelet Count 231 K/mm3 (150-400); RDW Coefficient Variation 18.7 % (11.7-14.2); RDW Standard Deviation 57.5 fL (35.1-46.3); Red Blood Cell Count 3.17 M/mm3 (3.80-5.20); White Blood Cell Count 5.42 K/mm3 (4.00-11.30)
[2024-06-28 12:50] LABS: Albumin, Blood 2.7 g/dL (3.4-5.0); Albumin/Globulin Ratio 0.7 (0.8-1.8); Bilirubin, Total 0.3 mg/dL (0.1-1.0); Bun/Creatinine Ratio 13.6 (12.0-20.0); Calcium, Blood 8.5 mg/dL (8.5-10.1); Creatinine, Blood 1.1 mg/dL (0.40-1.00); Potassium, Blood 4.2 mmol/L (3.5-5.5); Total Protein, Blood 6.7 g/dL (6.4-8.2)
== END 2024-06-28 13:48 | disposition home or self-care (01) ==
LOC: ER 08:04
PROVIDERS: Student in an Organized Health Care Education/Training Program
DX: N20.0 Calculus of kidney (principal); D64.9 Anemia, unspecified; Z88.5 Allergy status to narcotic agent; Z88.8 Allergy status to other drugs, medicaments and biological substances; Z79.01 Long term (current) use of anticoagulants; Z79.02 Long term (current) use of antithrombotics/antiplatelets; Z79.899 Other long term (current) drug therapy; Z87.891 Personal history of nicotine dependence
CPT/HCPCS: 36415; 80053; 83605; 85025; 87040; 99283

== ENCOUNTER → 2024-07-19 | Outpatient (CLI) | payer OTHER ==
[~2024-07-19] MED LIST changes: +FAMO20 PO; +Norco 10-325 T1 EACH
[2024-07-19 11:54] LABS: Source, Urine Clean Catch
[2024-07-19 18:33] LABS: Appearance, Urine Hazy (Clear); Bilirubin, Urine Neg (Neg); Blood, Urine 5+ (Neg); Color, Urine Yellow (P-Yellow); Glucose Qualitative, Urine Neg (Neg); Ketones, Urine Neg (Neg); Leukocyte Esterase, Urine 3+ (Neg); Nitrite, Urine Neg (Neg); Protein, Urine 2+ (Neg); Specific Gravity, Urine 1.015 (1.003-1.022); Urobilinogen, Urine NORM (Normal)
[2024-07-19 19:05] LABS: White Blood Cells, Urine TNTC /hpf (0-5)
[2024-07-19 19:06] LABS: Amorphous Light (0-Heavy); Bacteria Many /hpf; Mucus Light (0-Heavy); Squamous Epithelial Cells Few /hpf (Few); Transitional Epithelial Cells Rare /hpf (0-Rare)
== END | disposition home or self-care (01) ==
LOC: LAB SHORT 10:37 → LAB 10:37
PROVIDERS: Urology
DX: N39.0 Urinary tract infection, site not specified (principal)
CPT/HCPCS: 81001; 87077; 87086; 87186

== ENCOUNTER 2025-01-09 07:23 | Emergency (ER) | payer OTHER ==
[~2025-01-09] VITALS: Ht 162.6 cm; Wt 95.2 kg
[2025-01-09 07:44] VITALS: BP 168/93
[2025-01-09] MEDS ORDERED: Ketorolac Tromethamine 30mg Vial IM ONE (10:35)
== END 2025-01-09 10:55 | disposition home or self-care (01) ==
LOC: ER 07:23
DX: S92.344A Nondisplaced fracture of fourth metatarsal bone, right foot, initial encounter for closed fracture (principal); S92.354A Nondisplaced fracture of fifth metatarsal bone, right foot, initial encounter for closed fracture; Z88.5 Allergy status to narcotic agent; Z88.8 Allergy status to other drugs, medicaments and biological substances; Z79.01 Long term (current) use of anticoagulants; Z79.899 Other long term (current) drug therapy; I10 Essential (primary) hypertension; Z87.442 Personal history of urinary calculi; K21.9 Gastro-esophageal reflux disease without esophagitis; E78.5 Hyperlipidemia, unspecified; I48.91 Unspecified atrial fibrillation; Z87.891 Personal history of nicotine dependence; W18.30XA Fall on same level, unspecified, initial encounter
CPT/HCPCS: 29515; 73630; 99283-25

== ENCOUNTER 2025-03-09 14:11 | Emergency (ER) | payer OTHER ==
[~2025-03-09] VITALS: Ht 162.6 cm; Wt 99.8 kg
[~2025-03-09 14:11] MED LIST changes: +AZIT250 PO
[2025-03-09 15:53] LABS: BASOPHILS ABSOLUTE AUTO 0.01 K/mm3 (0.00-0.23); BASOPHILS PERCENT AUTO 0 % (0-2); EOSINOPHILS ABSOLUTE AUTO 0.02 K/mm3 (0.00-0.68); EOSINOPHILS PERCENT AUTO 0 % (0-6); Hematocrit 35.9 % (33.0-51.0); Hemoglobin 11.5 g/dL (11.5-16.0); IMMATURE GRAN ABSOLUTE AUTO 0.03 K/mm3 (0.00-0.10); IMMATURE GRAN PERCENT AUTO 1 % (0-1); LYMPHOCYTES ABSOLUTE AUTO 0.74 K/mm3 (0.84-5.20); LYMPHOCYTES PERCENT AUTO 13 % (21-46); MONOCYTES ABSOLUTE AUTO 0.54 K/mm3 (0.16-1.47); MONOCYTES PERCENT AUTO 10 % (4-13); Mean Corpuscular HGB Conc 32.0 g/dL (31.5-36.5); Mean Corpuscular Volume 104 fL (80-100); NEUTROPHILS ABSOLUTE AUTO 4.22 K/mm3 (1.96-9.15); NEUTROPHILS PERCENT AUTO 76 % (41-73); NRBC ABSOLUTE 0.00 K/mm3 (0.00-0.02); NRBC Auto 0.0 /100 WBC (0.0-0.2); Platelet Count 213 K/mm3 (150-400); RDW Coefficient Variation 12.9 % (11.7-14.2); RDW Standard Deviation 49.1 fL (35.1-46.3)
[2025-03-09 16:44] LABS: Alanine Aminotransfer (ALT/SGP 22.0 U/L (12-78); Albumin, Blood 3.1 g/dL (3.4-5.0); Albumin/Globulin Ratio 0.7 (0.8-1.8); Anion Gap 11.0 mmol/L (3-11); Aspartate Aminotrans (AST/SGOT 27.0 U/L (12-37); Bilirubin, Total 0.4 mg/dL (0.1-1.0); Blood Urea Nitrogen 25.0 mg/dL (8-24); C-REACTIVE PROTEIN, EXT RANGE 3.08 mg/dL (0.000-0.300); CO2, Blood 24.0 mmol/L (21-32); Calcium, Blood 7.9 mg/dL (8.5-10.1); Chloride, Blood 108.0 mmol/L (98-108); Creatinine, Blood 1.0 mg/dL (0.40-1.00); Globulin, Blood 4.3 g/dL (2.2-4.0); Glucose, Blood 99.0 mg/dL (70-99); Potassium, Blood 4.2 mmol/L (3.5-5.5); Sodium, Blood 139.0 mmol/L (136-145); Total Protein, Blood 7.4 g/dL (6.4-8.2); Uric Acid, Blood 6.0 mg/dL (2.6-6.0)
[2025-03-09 17:00] VITALS: BP 150/89
== END 2025-03-09 17:06 | disposition home or self-care (01) ==
LOC: ER 14:11
PROVIDERS: Physician Assistant
DX: M65.972 Unspecified synovitis and tenosynovitis, left ankle and foot (principal); Z87.891 Personal history of nicotine dependence
CPT/HCPCS: 73610; 80053; 84550; 85025; 85651; 86140; 93971; 99284-25

== ENCOUNTER 2025-03-14 15:51 | Emergency (ER) | payer OTHER ==
[~2025-03-14] VITALS: Ht 162.6 cm; Wt 99.8 kg
[2025-03-14 17:04] LABS: BASOPHILS ABSOLUTE AUTO 0.02 K/mm3 (0.00-0.23); BASOPHILS PERCENT AUTO 0 % (0-2); EOSINOPHILS ABSOLUTE AUTO 0.08 K/mm3 (0.00-0.68); EOSINOPHILS PERCENT AUTO 1 % (0-6); Hematocrit 37.6 % (33.0-51.0); Hemoglobin 12.0 g/dL (11.5-16.0); IMMATURE GRAN ABSOLUTE AUTO 0.03 K/mm3 (0.00-0.10); IMMATURE GRAN PERCENT AUTO 0 % (0-1); LYMPHOCYTES ABSOLUTE AUTO 0.88 K/mm3 (0.84-5.20); LYMPHOCYTES PERCENT AUTO 13 % (21-46); MONOCYTES ABSOLUTE AUTO 0.63 K/mm3 (0.16-1.47); MONOCYTES PERCENT AUTO 9 % (4-13); Mean Corpuscular HGB Conc 31.9 g/dL (31.5-36.5); Mean Corpuscular Volume 105 fL (80-100); NEUTROPHILS ABSOLUTE AUTO 5.40 K/mm3 (1.96-9.15); NEUTROPHILS PERCENT AUTO 77 % (41-73); NRBC ABSOLUTE 0.00 K/mm3 (0.00-0.02); NRBC Auto 0.0 /100 WBC (0.0-0.2); Platelet Count 216 K/mm3 (150-400); RDW Coefficient Variation 13.3 % (11.7-14.2); RDW Standard Deviation 51.2 fL (35.1-46.3)
[2025-03-14 17:31] LABS: Alanine Aminotransfer (ALT/SGP 19.0 U/L (12-78); Albumin, Blood 3.3 g/dL (3.4-5.0); Albumin/Globulin Ratio 0.8 (0.8-1.8); Anion Gap 7.0 mmol/L (3-11); Aspartate Aminotrans (AST/SGOT 20.0 U/L (12-37); Bilirubin, Total 0.4 mg/dL (0.1-1.0); Blood Urea Nitrogen 13.0 mg/dL (8-24); CO2, Blood 26.0 mmol/L (21-32); Calcium, Blood 8.6 mg/dL (8.5-10.1); Chloride, Blood 110.0 mmol/L (98-108); Creatinine, Blood 0.97 mg/dL (0.40-1.00); Globulin, Blood 4.2 g/dL (2.2-4.0); Glucose, Blood 109.0 mg/dL (70-99); Potassium, Blood 4.0 mmol/L (3.5-5.5); Sodium, Blood 139.0 mmol/L (136-145); Total Protein, Blood 7.5 g/dL (6.4-8.2)
[2025-03-14] MEDS ORDERED: Ketorolac Tromethamine 15mg Vial IV ONE (18:20)
[2025-03-14 20:00] VITALS: BP 146/72
== END 2025-03-14 20:30 | disposition home or self-care (01) ==
LOC: ER 15:51
PROVIDERS: Physician Assistant
DX: M72.2 Plantar fascial fibromatosis (principal); M76.61 Achilles tendinitis, right leg; I10 Essential (primary) hypertension; E03.9 Hypothyroidism, unspecified; E78.5 Hyperlipidemia, unspecified; I48.91 Unspecified atrial fibrillation; K21.9 Gastro-esophageal reflux disease without esophagitis; Z87.891 Personal history of nicotine dependence; Z88.1 Allergy status to other antibiotic agents; Z88.5 Allergy status to narcotic agent; Z79.01 Long term (current) use of anticoagulants; Z79.899 Other long term (current) drug therapy
CPT/HCPCS: 73610; 80053; 83690; 85025; 96374; 99283-25; J1885

== ENCOUNTER 2025-04-07 17:33 | Emergency (ER) | payer OTHER ==
[~2025-04-07] VITALS: Ht 162.6 cm; Wt 99.8 kg
[2025-04-07] MEDS ORDERED: Folic Acid 1 MG TAB PO ONE (17:55)
[2025-04-07] MEDS ORDERED: NS 1,000 ML IV SCH (17:55)
[2025-04-07 18:18] LABS: Source, Urine Clean Catch
[2025-04-07 18:21] LABS: Bilirubin, Urine Neg (Neg); Glucose Qualitative, Urine Neg (Neg); Ketones, Urine Neg (Neg); Leukocyte Esterase, Urine 3+ (Neg); Protein, Urine 1+ (Neg); Specific Gravity, Urine 1.010 (1.003-1.022); Urobilinogen, Urine NORM (Normal)
[2025-04-07 18:27] LABS: Color, Urine Pale Yellow (P-Yellow)
[2025-04-07 18:28] LABS: Red Blood Cells, Urine 0-2 /hpf (0-2); White Blood Cells, Urine 25-50 /hpf (0-5)
[2025-04-07 18:31] LABS: BASOPHILS ABSOLUTE AUTO 0.03 K/mm3 (0.00-0.23); BASOPHILS PERCENT AUTO 1 % (0-2); EOSINOPHILS ABSOLUTE AUTO 0.10 K/mm3 (0.00-0.68); EOSINOPHILS PERCENT AUTO 2 % (0-6); Hematocrit 34.3 % (33.0-51.0); Hemoglobin 10.7 g/dL (11.5-16.0); IMMATURE GRAN ABSOLUTE AUTO 0.06 K/mm3 (0.00-0.10); IMMATURE GRAN PERCENT AUTO 1 % (0-1); LYMPHOCYTES ABSOLUTE AUTO 1.17 K/mm3 (0.84-5.20); LYMPHOCYTES PERCENT AUTO 28 % (21-46); MONOCYTES ABSOLUTE AUTO 0.48 K/mm3 (0.16-1.47); MONOCYTES PERCENT AUTO 11 % (4-13); Mean Corpuscular HGB Conc 31.2 g/dL (31.5-36.5); Mean Corpuscular Volume 103 fL (80-100); NEUTROPHILS ABSOLUTE AUTO 2.42 K/mm3 (1.96-9.15); NEUTROPHILS PERCENT AUTO 57 % (41-73); NRBC ABSOLUTE 0.02 K/mm3 (0.00-0.02); NRBC Auto 0.5 /100 WBC (0.0-0.2); RDW Coefficient Variation 13.9 % (11.7-14.2); RDW Standard Deviation 52.5 fL (35.1-46.3)
[2025-04-07 18:32] LABS: U Amphetamine Screen Not Detected; U Barbiturate Screen Not Detected; U Benzodiazapine Screen Not Detected; U Buprenorphine Screen Not Detected; U Cannabinoids Screen Not Detected; U Cocaine Screen Not Detected; U Methadone Screen Not Detected; U Methamphetamine Screen Not Detected; U Opiates Screen DETECTED; U Oxycodone Screen Not Detected; U Phencyclidine Screen Not Detected
[2025-04-07 18:40] LABS: Alanine Aminotransfer (ALT/SGP 18.0 U/L (12-78); Albumin, Blood 2.9 g/dL (3.4-5.0); Albumin/Globulin Ratio 0.7 (0.8-1.8); Anion Gap 8.0 mmol/L (3-11); Aspartate Aminotrans (AST/SGOT 29.0 U/L (12-37); Bilirubin, Total 0.3 mg/dL (0.1-1.0); Blood Urea Nitrogen 14.0 mg/dL (8-24); CO2, Blood 25.0 mmol/L (21-32); Calcium, Blood 7.9 mg/dL (8.5-10.1); Chloride, Blood 113.0 mmol/L (98-108); Creatinine, Blood 0.89 mg/dL (0.40-1.00); Ethanol (Alcohol), Blood, Med 227.0 mg/dL; Globulin, Blood 4.0 g/dL (2.2-4.0); Glucose, Blood 85.0 mg/dL (70-99); Potassium, Blood 4.1 mmol/L (3.5-5.5); Sodium, Blood 142.0 mmol/L (136-145); Total Protein, Blood 6.9 g/dL (6.4-8.2)
[2025-04-07 18:47] LABS: Platelet Count 202 K/mm3 (150-400)
[2025-04-07 19:17] LABS: Magnesium, Blood 2.1 mg/dL (1.6-2.4); Thyroid Stimulating Hormone 1.01 uIU/mL (0.360-4.800)
[2025-04-07 22:14] VITALS: BP 148/80
== END 2025-04-07 22:15 | disposition home or self-care (01) ==
LOC: ER 17:33
PROVIDERS: Emergency Medicine
DX: S00.83XA Contusion of other part of head, initial encounter (principal); F10.129 Alcohol abuse with intoxication, unspecified; I10 Essential (primary) hypertension; E78.5 Hyperlipidemia, unspecified; K21.9 Gastro-esophageal reflux disease without esophagitis; E03.9 Hypothyroidism, unspecified; W18.30XA Fall on same level, unspecified, initial encounter; Z87.891 Personal history of nicotine dependence; Z79.899 Other long term (current) drug therapy; Z88.5 Allergy status to narcotic agent; Z88.1 Allergy status to other antibiotic agents
CPT/HCPCS: 70450; 72170; 80053; 80320; 81001; 82607; 83735; 84100; 84439; 84443; 85025; 93005; 93010; 99285-25; A9270; J7030